=== PATIENT | male | born 1940 | race Caucasian/White ===

== ENCOUNTER 2017-05-02 08:12 | Inpatient (IN) | payer OTHER ==
[~2017-05-02] VITALS: Ht 182.9 cm; Wt 91.0 kg
[2017-05-02 11:05] VITALS: BP 138/76
--- NOTE | 2017-05-02 11:09 | History & Physical ---
SAMANTHABOB 05/02/17 1108: General Information and HPI Statement: I have seen and personally examined CAROLYN WRIGHT and documented this H&P. The patient is a 76 year old M who presented with a patient stated chief complaint of [CARDIAC ARREST]. Source of Information: patient, family Exam Limitations: clinical condition History of Present Illness: 76 year old gentleman with pmh of HTN, afib on Xarelto about 1month ago, HLP who was in outpatient suit for elective cardioversion developed cardiac arrest. Into the patient has history of recently found atrial fibrillation, hypertension, hyperlipidemia, remote history of nasal surgery for septal deviation. During the interview patient was drowsy, unable to completely answer to the questions. According to Klaus Miranda MD patient had hx of afib. Is put on Xarelto for at least 4 weeks and came to [facility] for outpatient cardioversion. 200J sync was given to reverse the atrial fibrillation which was not successful after the second 200 J sync, patient went into V. tach and subsequent V. fib. CPR was is instantly started,and patient was intubated, ROSC was obtained patient was put on levophed and patient was extubated after 30 mins and transferred to ICU. In the ICU patient blood pressure dropped to 40/ doppler and he became mildly drowsy and has mild cyanosis of the extremities. She was put on Levophed, dopamine, dubutamine. bed side heart ultrasound showed EF of around 30%. central line on the left IJ was placed and patient and dubutamine and Levophed were continued, and was stopped. Patient blood pressure and mental status improved drastically. Initial EKG did not show any acute ST-T changes, NSR Chest x-ray or after the procedure did not show any pneumothorax or pleural effusion. Past History Travel History Traveled to [place] past 21 day No Medical History Cardiovascular: AFIB, chronic venous insuff, hypertension, hyperlipidemia Review of Systems Review of Systems Constitutional: Reports: see HPI. Exam & Diagnostic Data Last 24 Hrs of Vital Signs/I&O Vital Signs Date Time Temp Pulse Resp B/P B/P Pulse O2 O2 Flow FiO2 Mean Ox Delivery Rate 05/02 1220 68/0 05/02 1105 97.0 112 18 138/76 98 Ventilator 100% 05/02 1105 98 Ventilator 100% Intake & Output 05/02 1600 05/02 0800 05/02 0000 Intake Total Output Total Balance Patient 200 lb Weight Weight Bed scale Measurement Method Physical Exam General Appearance Oriented X3, Cooperative, No Acute Distress, DROWSY Skin Temp/Moisture Exam: Cool/Dry Sepsis Skin Exam (color): Cyanotic Neck jvd +1 Cardiovascular Regular Rate, Normal S1, Normal S2 Lungs Clear to Auscultation Abdomen Normal Bowel Sounds, Soft, No Tenderness Neurological Normal Speech Extremities COLD AND MILDLY CYANOTIC, SLOW CAP REFILL, NO PERIPHERAL PULSES Assessment/Plan Assessment: 76 year old gentleman with pmh of HTN, afib on Xarelto about 1month ago, HLP who was in outpatient suit for elective cardioversion developed cardiac arrest, status post CPR and possible cardiogenic shock on 2 pressors. Assessment and plan #cardiac arrest due to arrhythmia status post CPR possible cardiogenic shock -NPO for now -conitune dobutamine, try to wean off levophed -will consider mild hydarion -check stat icu bundle,lactic acid, coag,troponin -Troponin and EKG every 4-6 hours and Trend it -Dr Hayward already following the patient -discontinue Xarelto and put the patient on IV heparin around 5 PM -check fingersticks -I and Os -IV PPI # HLP -Continue statin hx of afib an HTN -no beta maxwell for now Full code, DVT prophylaxis IV heparin and ALPS, acetaminophen for pain,NPO As Ranked By This Provider Problem List: 1. Ventricular fibrillation Core Measures/Miscellaneous Acute Coronary Syndrome ACS Diagnosis: No Cerebrovascular Accident CVA/TIA Diagnosis: No Congestive Heart Failure CHF Diagnosis: No VTE (View Protocol) VTE Risk Factors: Age > 40 No [facility] VTE prophylaxis d/t: No contraindications No VTE Pharm Prophylaxis d/t: No contraindications VTE Diagnosis: No VTE Type: NONE VTE Confirmed by (Test): NONE Sepsis (View Protocol) Severe Sepsis Present: No Septic Shock Septic Shock Present: No Miscellaneous Documentation Attending Case Discussed With: Patient sees these Specialists dr HAYWARD Level of Patient Care: Critical Care (CRI) DANE SOLIS MD 05/02/17 1315: General Information and HPI Allergies/Medications Allergies: Coded Allergies: No Known Allergies (05/02/17) Home Med list Metoprolol Tartrate 25 MG TABLET 1 TAB PO BID HEART (Reported) Past History Surgical History Surgical History: unobtainable Core Measures/Miscellaneous Miscellaneous Documentation Primary Care Physician: TONYA SALDAÑA,ASHLIE Attending MD Review Statement Attending Statement Attending MD Statement: examined this patient, discuss w/resident/PA/SEO CONSULTANT, agreed w/resident/PA/SEO CONSULTANT, discussed with family, reviewed EMR data (avail), discussed with nursing, discussed with case mgmt, reviewed images, amended to note Attending Assessment/Plan: Dane Kulkarni M.D. have examined this patient, reviewed available EMR data, personally reviewed images, discussed with resident/PA/SEO CONSULTANT, discussed management plan with housestaff and nursing staff, discussed managment plan all of healthcare providers, discussed management plan with patient and/or family, agreed with resident/PA/SEO CONSULTANT. The past history and parts of the chart have been autopopulated. Impression 76 year old man. s/p cardiac arrest myocardial stunning post CPR, EF 20% estimated cardiogenic shock a.fib Plan Respiratory -extubated -monitor cxr ID -monitor wbc CVS -monitor hemodynamics -titrate levophed -titrate dobutamine Heme -monitor cbc, coags -xarelto held for now Metabolic -monitor ins/outs -creatinine Alimentary -NPO for now Neuro -stable -pain control DVT prophylaxis at all times Monitor all labs and electrolytes TTS 90 min D/w family and attendings
--- NOTE | 2017-05-02 11:15 | NUR ---
76 YEAR OLD MALE PRESENTS DIRECT ADMIT TO ICU FROM AMBULATORY SURGICAL SUITE S/P CODE 3 AFTER ELECTIVE CARDIOVERSION TREATMENT FOR AFIB. PT CODED 2 TIMES AND RETURN ROSC THEN TRANSPORTED WITH WHOLE TEAM TO ICU. PT IS STABLE AND RESPONDING APPORPRIATELY AT THIS TIME SO DECIDED BY TEAM TO BE EXTUBATED TO 9L NC OXIDIZER O2, WITH SATS STABLE AT 94%. bp NOTED STABLE AT THIS TIME AND LEVOPHED IS BEING HELD FOR 138/73 PRESSURE. IVF NS WIDE OPEN FOR 1 MORE LITER AND HEART RATE NOTED 112 SINUS TACHYCARDIA AT THIS TIME. PT SETTLED INTO ROOM 111 AND FAMILY DISCUSSION DONE WITH DR SOLIS AND DR RAMIREZ.
[2017-05-02] MEDS ORDERED: METOPROLOL TART25 M1 PO (11:32)
--- NOTE | 2017-05-02 11:45 | NUR ---
PTS BP NOTED DECREASED AT 42/DOPPLER AND LEVOPHED QUICKLY TITRATED TO 20MCG/MIN. DR LUCAS AT BEDSIDE WITH BP STILL LOW AFTER 20 MINUTES OF LEVOPHED AND NS RUNNING. 1210 DOPAMINE DRIP PLACED 1215 DOBUTAMINE DRIP PLACED PER DR LUCAS AT 15MCG/KG/MIN WITH WEIGHT NOTED 90 KG. 1225 BP IMPROVED AND DOPAMINE TO BE TITRATED TO OFF. 1230 PT MUCH MORE ALERT AND RESPONDING WELL TO ICU STAFF.
[2017-05-02 11:51] LABS: ABSOLUTE BASOPHIL COUNT 0 /CUMM (0.0-0.2); ABSOLUTE EOSINOPHIL COUNT 0 /CUMM (0.0-0.7); ABSOLUTE GRANULOCYTE CT 7.4 /CUMM (1.4-6.5); ABSOLUTE LYMPH COUNT 4.2 /CUMM (1.2-3.4); ABSOLUTE MONOCYTE COUNT 0.4 /CUMM (0.10-0.60); BASOPHIL % 0.3 % (0.0-2.0); EOSINOPHIL % 0.3 % (0-5); GRANULOCYTE % 61.2 % (42.2-75.2); HEMATOCRIT 42.2 % (42-52); MEAN CORPUSCULAR HGB 31.1 PG (27.0-31.0); MEAN CORPUSCULAR HGB CONC 33.3 G/DL (33.0-37.0); MEAN CORPUSCULAR VOLUME 93.5 FL (80.0-94.0); MEAN PLATELET VOLUME 10.1 FL (7.4-10.4); PLATELET COUNT 196 /CUMM (130-400); RBC DISTRIBUTION WIDTH 13.7 % (11.5-14.5); RED BLOOD CELL CT 4.51 /CUMM (4.70-6.10); WHITE BLOOD CELL COUNT 12.1 /CUMM (4.8-10.8)
[2017-05-02 11:52] LABS: PT 16.2 SEC (9.4-12.5)
--- NOTE | 2017-05-02 11:53 | RADIOLOGY REPORT ---
EXAMINATION: XR PORTABLE CHEST CLINICAL INFORMATION: Status post cardiac arrest and CPR COMPARISON: None TECHNIQUE: Portable AP upright view of the chest was obtained. FINDINGS: The left lateral hemithorax and costophrenic sulcus is not included on the film. Heart size is upper limits of normal. Pulmonary vascularity is normal. There is slight elevation of the right diaphragm with some crowding of the markings in the right midlung zone. There is no pulmonary edema. There is no focal consolidation or atelectasis appreciated. There is no pneumothorax or significant pleural effusion. No acute bony abnormality is seen. IMPRESSION: Chest x-ray is limited. Lateral lower hemithorax is not included on the film. The lungs are grossly clear. There is no pulmonary edema, pneumothorax or significant pleural effusion
--- NOTE | 2017-05-02 12:25 | Cons- Cardiology ---
General Information and HPI Consulting Request Date of Consult: 05/02/17 Requested By: Dr. Mcgarry Reason for Consult: cardiac arrest Source of Information: patient, family, old records History of Present Illness: This is a very pleasant 76-year-old male with a recently diagnosed atrial fibrillation and also found to have a mild left ventricular dysfunction on outpatient echocardiogram which was presumed due to the atrial fibrillation. He was scheduled for elective RUSS cardioversion today to resume sinus rhythm and has been taking Xarelto for anticoagulation. The transesophageal echocardiogram revealed no left ventricular thrombus and cardioversion was attempted. The 1st cardioversion attempt was unsuccessful at restoring sinus rhythm and following the 2nd attempt of cardioversion and the patient developed polymorphic VT with subsequent ventricular fibrillation. ACLS protocol was immediately initiated and the patient failed to convert back to a stable rhythm with an immediate defibrillation attempt. I personally ran the ACLS code (see signed code sheet) and after rounds of cardiopulmonary resuscitation the patient remained in unstable ventricular arrhythmia; he did receive intravenous amiodarone and I subsequently used to a simultaneous defibrillators to convert the patient back into atrial fibrillation with the return of a pulse. He did require intravenous pressors and did have a transient episode of sinus bradycardia after that for which I did temporarily transcutaneous pacing. We were able to stabilize the patient and immediately transferred him to the ICU for admission. Bedside echocardiogram did show decreased ejection fraction and due to low blood pressure we initiated him on dobutamine and Levophed with good blood pressure response. Allergies/Medications Home Med List: Metoprolol Tartrate 25 MG TABLET 1 TAB PO BID HEART (Reported) Current Medications: Current Medications Sig/Alysia Start time Last Medication Dose Route Stop Time Status Admin Acetaminophen 650 MG Q6P PRN 05/02 1315 AC PO Amiodarone HCl/ 360 MG Q12H 05/02 1115 AC Dextrose IV N/A 1 UNIT Dobutamine HCl 250 MG .STK-MED ONE 05/02 1235 DC IV 05/02 1236 Dobutamine HCl 250 MG Q24H 05/02 1215 AC 05/02 Dextrose/Water 250 ML IV 1220 Dopamine HCl 400 MG Q24H 05/02 1245 AC Dextrose/Water 500 ML IV Heparin Sodium 25,000 UNIT Q24H 05/02 1130 AC (Porcine) IV Sodium Chloride 500 ML Ketorolac 15 MG ONCE ONE 05/02 1330 DC Tromethamine IV 05/02 1331 Lidocaine 0 .STK-MED ONE 05/02 0823 DC TOP Midazolam HCl 0 .STK-MED ONE 05/02 1106 DC .ROUTE Morphine Sulfate 2 MG ONCE ONE 05/02 1115 DC 05/02 IV 05/02 1116 1115 Norepinephrine 4 MG Q4H 05/02 1245 AC Dextrose/Water 250 ML IV Pantoprazole Sodium 40 MG DAILY 05/02 1320 AC IV Sodium Chloride 1,000 ML ONCE ONE 05/02 1215 AC 05/02 IV 05/02 1714 1230 Sodium Chloride 1,000 ML BOLUS ONE 05/02 1200 DC 05/02 IV 05/02 1259 1200 Review of Systems Review of Systems: As per above HPI. The remainder of a 10 point review of systems was reviewed and was otherwise negative. Past History Travel History Traveled to [place] past 21 day No Medical History Cardiovascular: AFIB Surgical History Surgical History: non-contributory Exam & Diagnostic Data Vital Signs and I&O Vital Signs Date Time Temp Pulse Resp B/P B/P Pulse O2 O2 Flow FiO2 Mean Ox Delivery Rate 05/02 1220 68/0 05/02 1105 97.0 112 18 138/76 98 Ventilator 100% 05/02 1105 98 Ventilator 100% Intake & Output 05/02 1600 05/02 0800 05/02 0000 05/01 1600 05/01 0800 05/01 0000 Intake Total Output Total Balance Patient 200 lb Weight Weight Bed scale Measurement Method Physical Exam: General: no apparent distress. Alert. Eyes: No obvious scleral icterus. HEENT: No jugular venous distention or abnormal jugular venous pulsations. Cardiovascular: Normal intensity S1/S2. Regular. Respiratory: No rales or rhonchi Abdomen: no guarding Musculoskeletal: No clubbing or cyanosis noted, no edema Skin: Warm Neurologic: No gross focal deficits noted. Labs/Eran Results: Laboratory Tests 05/02 05/02 1320 1120 Blood Gas pH (7.35 - 7.45 PH) 7.41 pCO2 (35 - 45 TORR) 28 L pO2 (80 - 100 TORR) 68 L HCO3 (21 - 28 MEQ/L) 17 L ABG O2 Sat (Measured) (>96.0 %) 93.0 L P-50 (Temp Corrected) Y Carboxyhemoglobin (1.5 - 5.0 %) 0.5 L O2 Concentration % 8L Temperature (97.0 - 100.0 FARH) 97.0 O2 Delivery Method N/C PENDANT Chemistry Sodium (137 - 145 mmol/L) 137 Potassium (3.5 - 5.1 mmol/L) 3.7 Chloride (98 - 107 mmol/L) 105 Carbon Dioxide (22 - 30 mmol/L) 21 L Anion Gap (5 - 16) 12 BUN (9 - 20 mg/dL) 15 Creatinine (0.7 - 1.2 mg/dL) 1.1 Estimated GFR (>60 ml/min) > 60 Glucose (65 - 99 mg/dL) 255 H Lactic Acid (0.7 - 2.1 mmol/L) 5.4 H Calcium (8.4 - 10.2 mg/dL) 9.0 Phosphorus (2.5 - 4.5 mg/dL) 4.0 Magnesium (1.6 - 2.3 mg/dL) 3.3 H Total Bilirubin (0.2 - 1.3 mg/dL) 1.3 AST (17 - 59 U/L) 102 H ALT (21 - 72 U/L) 116 H Creatine Kinase (55 - 170 U/L) 107 Troponin I (<0.11 ng/ml) 0.02 Albumin (3.5 - 5.0 g/dL) 3.6 Coagulation PT (9.4 - 12.5 SEC) 16.2 H INR (0.90 - 1.17) 1.55 H Hematology CBC w Diff MAN DIFF ORDERED WBC (4.8 - 10.8 /CUMM) 12.1 H RBC (4.70 - 6.10 /CUMM) 4.51 L Hgb (14.0 - 18.0 G/DL) 14.0 Hct (42 - 52 %) 42.2 MCV (80.0 - 94.0 FL) 93.5 MCH (27.0 - 31.0 PG) 31.1 H RDW (11.5 - 14.5 %) 13.7 Plt Count (130 - 400 /CUMM) 196 MPV (7.4 - 10.4 FL) 10.1 Gran % (42.2 - 75.2 %) 61.2 Lymphocytes % (20.5 - 51.1 %) 34.5 Monocytes % (1.7 - 9.3 %) 3.7 Eosinophils % (0 - 5 %) 0.3 Basophils % (0.0 - 2.0 %) 0.3 Absolute Granulocytes (1.4 - 6.5 /CUMM) 7.4 H Segmented Neutrophils (42.2 - 75.2 %) 53 Band Neutrophils (0.0 - 5.0 %) 3 Absolute Lymphocytes (1.2 - 3.4 /CUMM) 4.2 H Lymphocytes (20.5 - 51.1 %) 38 Monocytes (1.7 - 9.3 %) 4 Absolute Monocytes (0.10 - 0.60 /CUMM) 0.4 Absolute Eosinophils (0.0 - 0.7 /CUMM) 0 Absolute Basophils (0.0 - 0.2 /CUMM) 0 Myelocytes (0 - 0 %) 2 H Platelet Estimate (ADEQUATE) ADEQUATE Normocytic RBCs VERIFIED Normochromic RBCs VERIFIED PUBS MCHC (33.0 - 37.0 G/DL) 33.3 Miscellaneous Phlebotomy Draw Site RIGHT RADIAL 05/02 1040 Blood Gas pH (7.35 - 7.45 PH) 7.32 L pCO2 (35 - 45 TORR) 36 pO2 (80 - 100 TORR) 64 L HCO3 (21 - 28 MEQ/L) 18 L ABG O2 Sat (Measured) (>96.0 %) 89.0 L Carboxyhemoglobin (1.5 - 5.0 %) 1.0 L O2 Concentration % 100% O2 Delivery Method [id number] Miscellaneous Phlebotomy Draw Site LEFT RADIAL Diagnostic Data EKG Results tracing was personally reviewed now shows sinus rhythm without ST elevations. Pre cardioversion ECG confirmed atrial fibrillation. CXR Results IMPRESSION: Chest x-ray is limited. Lateral lower hemithorax is not included on the film. The lungs are grossly clear. There is no pulmonary edema, pneumothorax or significant pleural effusion Other Results Telemetry tracings were personally reviewed and currently shows sinus rhythm Transesophageal echocardiogram showed cardiomyopathy with no evidence of intracardiac thrombus, small left to right inter atrial shunt noted Assessment/Plan Assessment/Plan 1. Recent diagnosis of atrial fibrillation on Xarelto with outpatient EF of 40% 2. Attempted RUSS/CV complicated by pulseless ventricular arrhythmia; subsequently stabilized after ACLS protocol and defibrillation with no evidence of neurologic injury 3. Hypotension requiring pressors/ionotropes 4. History of hyperlipidemia See above HPI. The cardioversion was complicated by unstable ventricular arrhythmia; as the patient showed no evidence of CHF or acute ischemia I must consider the possibility of inadequate synchronization as a possible etiology. While the patient did appear to be well synchronized on the defibrillator it is possible we lost synchronization while we were clearing the patient immediately prior to delivering the 2nd shock. Fortunately we initiated immediate ACLS protocols and were able to stabilize the patient and he is now awake and alert with no evidence of neurologic complication. As he is now in sinus rhythm I do not think we need to put him on an amiodarone drip as he did receive IV boluses of amiodarone during ACLS protocol. We will titrate down Levophed and dobutamine as blood pressure allows. The patient was transiently intubated during ACLS but was subsequently extubated with no respiratory distress. He will require continued anticoagulation; he did take his Xarelto this morning and we should plan on initiating a heparin drip this afternoon with the eventual plan to transition back to the Xarelto. Monitor fluid status closely given his depressed ejection fraction. Will plan for outpatient ischemic workup in the future. We are hoping to see overall improvement in his ejection fraction with maintaining sinus rhythm going forward. Once blood pressures completely stabilized his beta- maxwell will be resumed. Time spent in critical care was greater than 120 minutes. Leonardo Miranda MD [facility] Consult Acknowledgment - Thank you for your consult request.
--- NOTE | 2017-05-02 13:22 | Proc Note Internal Medicine ---
See Addendum Medicine Procedure Procedure Date: 05/02/17 Medical Procedure(s): central venous cath place Estimated Blood Loss: 50ml to 100ml Procedure Findings: Indication: Requesting Physician: Dr. Mcgarry Type of Procedure: Central Venous Catheter Placement Attending Physician: Dane Mcgarry Assisting Physician: Dane Mcgarry MD Indication: This is a _76__ year-old __man_ with _post cardiac arrest__ . Consent: Detailed explanation of the procedure, treatment options, risks including but not limited to infection and bleeding, and benefits were explained to the patient . A written informed consent was obtained. Technique: A time out was preformed identifying the correct procedure, the correct location with the nursing staff. The right neck was prepped with 2% chlorhexidine and draped with a full length sterile sheet in the usual fashion. 1% lidocaine was administered subcutaneously for local anesthesia. The right internal jugular vein was accessed under ultrasound guidance with an 18 gauge thin wall needle. A triple lumen lumen was inserted via the seldinger technique. Blood was withdrawn from all lumens and flushed with normal saline. The catheter was sutured in place and a sterile dressing was applied over the site prior to removal of drapes. The patient tolerated the procedure well and there were no complications. Chest x ray is pending at this time. EBL: Complication: None
--- NOTE | 2017-05-02 13:51 | RADIOLOGY REPORT ---
EXAMINATION: XR PORTABLE CHEST CLINICAL INFORMATION: Internal jugular placement. COMPARISON: 05/02/2017 TECHNIQUE: Portable frontal view of the chest was obtained. FINDINGS: There is a new right internal jugular central venous catheter which terminates over the superior SVC. Cardiac leads overlie the chest. There is elevation of the right hemidiaphragm. No consolidation, edema, or effusion. No pneumothorax. The cardiomediastinal silhouette is unchanged. IMPRESSION: Right internal jugular central venous catheter terminating over the superior SVC. No pneumothorax.
--- NOTE | 2017-05-02 14:18 | NUR ---
PHLEBOTOMIST ASSOCIATE JOSELITO AND BETY KAUR ARRIVED TO CARDIAC ARREST, PT INTUBATED BY ANESTHESIA WITH 7.5 ETT 22 AT THE LIP. ETT PLACEMENT VERIFIED BY B/L BREATH SOUNDS, + COLOR CHANGE ON CO2 DETECTOR AND ANESTHESIA GLIDESCOPE. PT BAGGED WITH 15L O2 WHILE COMPRESSIONS IN PROGRESS. PULSES RETURNED. ABG WAS OBTAINED BY BETY KAUR V/O PER DR. BRADFORD. PT TRANSFERED TO ICU ROOM 111 BAGGED BY BETY YEE WITH 15L O2. UPON ARRIVAL PT WAS EXTUBATED BY BETY KAUR TO 2L N/C, V/O PER DR. SOLIS. SEE CODE SHEET.
--- NOTE | 2017-05-02 14:53 | Proc Note Cardiology ---
Cardiology Procedure Procedure Date: 05/02/17 Cardiology Procedure(s): electrical cardioversion, RUSS Pre-Operative Diagnosis: Atrial fibrillation Post-Operative Diagnosis: VT/VF, subsequent sinus rhythm Estimated Blood Loss: none Anesthesia: see anesthesia record and ACLS code sheet Procedure Findings: See transesophageal echocardiogram report for details. No evidence of intracardiac thrombus, small [id number] interatrial shunt noted. Following the RUSS, cardioversion using 200 joules of synchronized energy was attempted x2; following the 2nd attempt ventricular tachycardia/ ventricular fibrillation was noted and ACLS protocol was immediately initiated. See my consultation note for full details. After ACLS/CPR with IV amiodarone bolus and multiple defibrillation attempts I was eventually able to restore a pulsed rhythm using defibrillation with 2 defibrillators simultaneously. The patient was subsequently transferred to the ICU. He was transiently intubated during ACLS but subsequently extubated with no respiratory distress or evidence of neurologic complication. Leonardo Miranda MD [facility]
--- NOTE | 2017-05-02 15:04 | ECHOCARDIOGRAM REPORT ---
CAROLYN WRIGHT Age: 76 : Gender: M Exam Date: 05/02/2017 10:01 Exam Location: Outpatient Ht (in): 72 Wt (lb): 200 BSA: 2.16 BP: 116 / 80 Ordering Physician: LAURA QUIROZ MD Referring Physician: LAURA QUIROZ MD Technologist: Jaycob Dinero ANITA Room Number: Indications: AFIB/FLUTTER Rhythm: Atrial fibrillation Technical Quality: Good Medications Propofol administered by Anesthesiology. Ease of Transducer Insertion No Difficulty Complications VT/VF after cardioversion attempt Technical Difficulty None. FINDINGS Left Ventricle Left ventricular cavity size at the upper limits of normal. Normal left ventricular wall thickness. Moderately reduced global left ventricular systolic function. Left ventricular ejection fraction is estimated at 35 %. Right Ventricle Normal right ventricular size and function. Right Atrium Mild right atrial dilatation. Left Atrium Moderate left atrial dilatation. LA Appendage No thrombus detected in the left atrial appendage. IA Septum Patent foramen ovale. Mitral Valve Structurally normal mitral valve. [id number] mitral regurgitation. Aortic Valve No aortic stenosis. Trileaflet aortic valve. Tricuspid Valve Structurally normal tricuspid valve. Mild tricuspid regurgitation. Unable to estimate the right ventricular systolic pressure. Pulmonic Valve Pulmonic valve not well visualized, grossly normal. Trace pulmonic regurgitation. Pericardium No pericardial effusion. Great Vessels Mildly dilated proximal ascending aorta (4.2 cm). CONCLUSIONS Left ventricular cavity size at the upper limits of normal. Normal left ventricular wall thickness. Moderately reduced global left ventricular systolic function. Left ventricular ejection fraction is estimated at 35 %. Normal right ventricular size and function. Mild right atrial dilatation. Moderate left atrial dilatation. No thrombus detected in the left atrial appendage. Patent foramen ovale. [id number] mitral regurgitation. Mildly dilated proximal ascending aorta (4.2 cm). Following the RUSS, cardioversion was attempted using 200 joules of synchronized energy x2. Following the 2nd delivery the patient developed VT/VF and ACLS protocol was immediately initiated with eventual return of spontaneous circulation. The patient was transferred to the ICU for additional treatment/monitoring. Klaus Miranda M.D. (Electronically Signed) Final Date: 02 May 2017 15:03 MEASUREMENTS (Male / Female) Normal Values 2D ECHO Ascending Aorta Diameter 4.2 cm
[2017-05-02 18:49] VITALS: BP 98/61
--- NOTE | 2017-05-02 19:55 | NUR ---
1530; PT SUPINE HOB UP 40DEGREES,C/O PAIN S/P COMPRESSIONS AND SHOCKS ICE PACKS TO CHEST WALL. PT MEDICATED WITH MORPH PREVIOUSLY, 5L NC SAT 95, TLC TO RT IJ,3 IV SITES RT ARM,, CARDIAC PADS ON PT. PREVENTATIVE, HNV, SINCE EVENT,. WEANED OFF LEVOPHED NOW WEANING OFF DOBUTAMINE GTT, IVF NS 100MLS/HR, 1730 STARTED HEPARING GTT AFTER EKG AND BLD DRAWNS.CL STARTED PT VERO WELL ACCU CHECK PRIOR TO CL 86 AND REPORTED, FAMILY AT BEDSIDE. RESTING COMFORTABLY.
[2017-05-03] VITALS: BP 116/67
[2017-05-03 00:19] LABS: PTT 70 SEC (25-37)
[2017-05-03 05:26] LABS: ABSOLUTE BASOPHIL COUNT 0 /CUMM (0.0-0.2); ABSOLUTE EOSINOPHIL COUNT 0 /CUMM (0.0-0.7); ABSOLUTE GRANULOCYTE CT 6.9 /CUMM (1.4-6.5); ABSOLUTE LYMPH COUNT 0.7 /CUMM (1.2-3.4); ABSOLUTE MONOCYTE COUNT 0.5 /CUMM (0.10-0.60); BASOPHIL % 0.2 % (0.0-2.0); EOSINOPHIL % 0 % (0-5); GRANULOCYTE % 84.9 % (42.2-75.2); MEAN CORPUSCULAR HGB 31.3 PG (27.0-31.0); MEAN CORPUSCULAR HGB CONC 33.4 G/DL (33.0-37.0); MEAN CORPUSCULAR VOLUME 93.5 FL (80.0-94.0); MEAN PLATELET VOLUME 9.5 FL (7.4-10.4); PLATELET COUNT 119 /CUMM (130-400); RBC DISTRIBUTION WIDTH 13.4 % (11.5-14.5); RED BLOOD CELL CT 3.74 /CUMM (4.70-6.10)
[2017-05-03 05:51] LABS: WHITE BLOOD CELL COUNT 8.1 /CUMM (4.8-10.8)
[2017-05-03 08:00] VITALS: BP 122/74
--- NOTE | 2017-05-03 08:13 | NUR ---
1930 REC'D PT IN BED A/O X3. S/P CODE 3, DEFIB PADS AT BEDSIDE ON BUT NOT ON PACED MODE. SR ON THE MONITOR HR 80-90'S, SBP 90-120'S CORRELATING TO BOTH CUFFS. ON THE DOBUTAMINE GTT TITRATE DOWN TO 5MCG/KG/MIN, HEP GTT FOR AFIB/DVT PROTOCOL & IVF NS @100ML/HR. IVF REORDERED. SL CLAIRE CHEST AREA D/T CPR, ICE PACK APPLIED & STATED IT HELPED. DID NOT WANT ANY PAIN MEDS AT THIS TIME. ON 5LNC POX >94-98%, LS DIMINISHED BUT HAD SOME FRICTION RUB TO AT THE BASES S/P CODE 3. PT HAD NOT VOIDED SINCE 11AM. BLADDER SCAN >307ML. OFFERED THE URINAL & FINALLY VOIDED 100ML OF SL DK URINE. REFUSED TO BE ST CATH/PLACE A FC, PT STATED WILL WAIT & SEE. 2300 PLACED A CVP ZEROED/ READING 12, INFORMED DR. MCCLAIN. NO INTERVENTION ORDERED. EKG/LAB DRAWN FOR TROP/PTT. [id number] AFIA DEL VALLE AWARE & ORDERED ANOTHER TROP/EKG FOR 5AM. PT FINALLY ASKED FOR PAIN MED BUT ALSO C/O NAUSEA. MEDICATED W/MORPHINE & ZOFRAN SEE EMAR FOR TIMES. TITRATED FIO2 TO 4LNC. POX >94-95% 0200 COMPLETE BED BATH GIVEN. HAD DIFFICULTY W/ANY T&P & PLACING HOB DOWN. MANAGED FAIRLY WELL. PT STATED THOUGH HAD GOOD RELIEF W/THE PAIN MED. SETTLED TO SLEEP FOR AT LEAST 2HRS. [id number] COUGH UP SM AMT OF OLD BLOOD TK FROM THE INTUBATION/EXTUBATION VOIDED TWICE OF 200ML SEE I/O SHEET. [id number] D/C DOBUTAMINE GTT PER DR. DEL VALLE. AND MEDICATED AGAIN W/MORPHINE AGAIN WITH MORPHINE & ZOFRAN IV SEE EMAR. VS WNL. 4TH TROP 0.86. EKG DONE. CONT TO MONITOR. 07 [facility].
--- NOTE | 2017-05-03 09:52 | PN- CRCU ---
Subjective HPI/Critical Care Issues: pt seen and examined off vasopressors (levophed and dobutamine) right sided IJ triple lumen, dressing changed last night mentating well CVP 11 afebrile 93% on 4LNC 4.5L positive over 24 hours pending cxr this am Objective Current Medications: Current Medications Sig/Alysia Start time Last Medication Dose Route Stop Time Status Admin Acetaminophen 650 MG Q6P PRN 05/02 1315 AC PO Amiodarone HCl/ 360 MG Q12H 05/02 1115 DC Dextrose IV N/A 1 UNIT Dobutamine HCl 250 MG Q8H 05/02 2200 DC 05/02 Dextrose/Water 250 ML IV 2159 Dobutamine HCl 250 MG Q4H 05/02 1600 DC 05/02 Dextrose/Water 250 ML IV 1600 Dobutamine HCl 250 MG .STK-MED ONE 05/02 1235 DC IV 05/02 1236 Dobutamine HCl 250 MG Q24H 05/02 1215 DC 05/02 Dextrose/Water 250 ML IV 1220 Dopamine HCl 400 MG Q24H 05/02 1245 DC 05/02 Dextrose/Water 500 ML IV 1517 Heparin Sodium 25,000 UNIT Q24H 05/02 1130 AC 05/02 (Porcine) IV 1726 Sodium Chloride 500 ML Ketorolac 15 MG ONCE ONE 05/02 1330 DC 05/02 Tromethamine IV 05/02 1331 1330 Midazolam HCl 0 .STK-MED ONE 05/02 1106 DC .ROUTE Morphine Sulfate 2 MG ONCE ONE 05/02 1530 DC 05/02 IV 05/02 1531 1539 Morphine Sulfate 2 MG Q4P PRN 05/02 1530 05/03 IV 0610 Morphine Sulfate 2 MG ONCE ONE 05/02 1115 DC 05/02 IV 05/02 1116 1115 Norepinephrine 4 MG Q4H 05/02 1245 DC 05/02 Dextrose/Water 250 ML IV 1245 Norepinephrine 4 MG .STK-MED ONE 05/02 1226 DC IV 05/02 1227 Ondansetron HCl 4 MG Q4-6 PRN PRN 05/02 1545 05/03 IV 0611 Pantoprazole Sodium 40 MG DAILY 05/02 1320 AC 05/02 IV 1320 Phosphate 250 MG PC AND AT BEDTIME 05/03 1300 UNVr PO Phosphate 250 MG PC AND AT BEDTIME 05/02 2100 DC 05/02 PO 05/03 0901 2200 Potassium Chloride 40 MEQ ONCE ONE 05/03 0700 DC PO 05/03 0701 Potassium Chloride 20 MEQ ONCE ONE 05/03 0630 DC 05/03 IV 05/03 0631 0638 Potassium Chloride 20 MEQ ONCE ONE 05/02 1530 DC 05/02 IV 05/02 1531 1532 Sodium Chloride 1,000 ML Q10H 05/03 0230 AC 05/03 IV 0200 Sodium Chloride 1,000 ML ONCE ONE 05/02 1215 DC 05/02 IV 05/02 1714 1230 Sodium Chloride 1,000 ML BOLUS ONE 05/02 1200 DC 05/02 IV 05/02 1259 1200 Vital Signs & I&O Last 24 Hrs of Vitals and I&O: Vital Signs Date Time Temp Pulse Resp B/P B/P Pulse O2 O2 Flow FiO2 Mean Ox Delivery Rate 05/03 0600 77 101/57 05/03 0400 93 Nasal 4.0L Cannula 05/03 0000 99.1 96 13 116/67 94 Nasal 4.0L Cannula 05/03 0000 94 Nasal 4.0L Cannula 05/02 2159 97 104/65 05/02 2045 98 107/64 05/02 2000 98 Nasal 5.0L Cannula 05/02 1849 99.7 104 12 98/61 95 Nasal 5.0L Cannula 05/02 1645 102 104/63 05/02 1600 102 104/63 05/02 1600 95 Nasal 5.0L Cannula 05/02 1517 68 72/48 05/02 1220 68/0 05/02 1105 97.0 112 18 138/76 98 Ventilator 100% 05/02 1105 98 Ventilator 100% Intake & Output 05/03 1600 05/03 0800 05/03 0000 Intake Total 1428 1533 Output Total 400 100 Balance 1028 1433 Intake, IV 1188 933 Intake, Oral 240 600 Number 0 0 Bowel Movements Output, Urine 400 100 Exam Other Physical Findings: gen awake and alert heent ncat cvs s1, s2 lungs diminished at bases abd soft bs+ ext without edema tenderness midchest Results Last 24 Hrs of Lab Results: Laboratory Tests 05/03/17 0500: Troponin I Cancelled 05/03/17 0455: Anion Gap 7, Estimated GFR > 60, Glucose 86, Calcium 8.0 L, Phosphorus 3.1, Magnesium 2.3, Total Bilirubin 1.2, AST 81 H, ALT 93 H, Troponin I 0.86 *H, Albumin 2.9 L, CBC w Diff NO MAN DIFF REQ, RBC 3.74 L, MCV 93.5, MCH 31.3 H, RDW 13.4, MPV 9.5, Gran % 84.9 H, Lymphocytes % 8.6 L, Monocytes % 6.3, Eosinophils % 0, Basophils % 0.2, Absolute Granulocytes 6.9 H, Absolute Lymphocytes 0.7 L, Absolute Monocytes 0.5, Absolute Eosinophils 0, Absolute Basophils 0, PUBS MCHC 33.4 05/02/17 2220: Troponin I 1.79 *H, APTT 70 H 05/02/17 1700: Anion Gap 8, Estimated GFR 59 L, Glucose 84, Lactic Acid 1.1, Calcium 8.3 L, Phosphorus 1.6 L, Magnesium 2.4 H, Total Bilirubin 1.3, AST 97 H, ALT 112 H, Troponin I 2.20 *H, Albumin 3.1 L 05/02/17 1320: pH 7.41, pCO2 28 L, pO2 68 L, HCO3 17 L, ABG O2 Sat (Measured) 93.0 L, P-50 (Temp Corrected) Y, Carboxyhemoglobin 0.5 L, O2 Concentration % 8L, Temperature 97.0, O2 Delivery Method N/C PENDANT, Phlebotomy Draw Site RIGHT RADIAL 05/02/17 1120: Anion Gap 12, Estimated GFR > 60, Glucose 255 H, Lactic Acid 5.4 H, Calcium 9.0, Phosphorus 4.0, Magnesium 3.3 H, Total Bilirubin 1.3, AST 102 H, ALT 116 H, Creatine Kinase 107, Troponin I 0.02, Albumin 3.6, PT 16.2 H, INR 1.55 H, CBC w Diff MAN DIFF ORDERED, RBC 4.51 L, MCV 93.5, MCH 31.1 H, RDW 13.7, MPV 10.1, Gran % 61.2, Lymphocytes % 34.5, Monocytes % 3.7, Eosinophils % 0.3, Basophils % 0.3, Absolute Granulocytes 7.4 H, Segmented Neutrophils 53, Band Neutrophils 3, Absolute Lymphocytes 4.2 H, Lymphocytes 38, Monocytes 4, Absolute Monocytes 0.4, Absolute Eosinophils 0, Absolute Basophils 0, Myelocytes 2 H, Platelet Estimate ADEQUATE, Normocytic RBCs VERIFIED, Normochromic RBCs VERIFIED, PUBS MCHC 33.3 05/02/17 1040: pH 7.32 L, pCO2 36, pO2 64 L, HCO3 18 L, ABG O2 Sat (Measured) 89.0 L, Carboxyhemoglobin 1.0 L, O2 Concentration % 100%, O2 Delivery Method AMBU-BAG, Phlebotomy Draw Site LEFT RADIAL Impression/Plan Impression/Plan Impression/Plan: Impression 76 year old man * s/p cardiac arrest, ventricular arrhythmia after cardioversion electively for a.fib * chest contusion with possible fractures of ribs/costochondritic pain * cardiogenic shock resolved - cardiomyopathy, likely underlying from cpr Plan Respiratory -remains extubated -repeat cxr this morning -chest contustion, possible fractures -aggressive pain control -incentive spirometry q1 hour ID -no acute issues CVS -f/u cardiology recommendations -on heparin drip, previously on xarelto -per cardiology limited echo repeat early next week Heme -heparin drip monitoring Metabolic -replete electrolytes to goal -kphos Alimentary -cardiac diet, with a bedside swallow Neuro -pain control DVT prophylaxis at all times TTS 40 min
--- NOTE | 2017-05-03 11:06 | RADIOLOGY REPORT ---
EXAMINATION: XR PORTABLE CHEST CLINICAL INFORMATION: Status post cardiac arrest. CPR. COMPARISON: [facility] of 05/02/17. TECHNIQUE: Portable frontal view of the chest was obtained. FINDINGS: The tip of the right IJ CVL reaches the level of the mid SVC. The lungs and pleural spaces are clear. No pneumothorax is demonstrated. Enlargement the cardiac silhouette is unchanged. Assessment of bony structures is limited. No acute abnormality is seen. IMPRESSION: 1. Stable mildly enlarged cardiac silhouette. 2. Clear lungs and pleural spaces.
[2017-05-03 12:59] LABS: PTT 80 SEC (25-37)
--- NOTE | 2017-05-03 13:50 | NUR ---
Patient is alert and oriented x's 3, able to follow commands and answer questions appropriately. NSR w/ Pac's and PVC's, HR= 60-70's. Episodes of SVT vs Afib where heart rate increases to the 140's last only a couple seconds. Heparin gtt continues to infuse and is therapeutic with the enxt PTT due at 2330. CVP: 11-12- SBP: 120's- patient c/o chest pain s/p CPR and has been medicated with IV morphine and icepacks as needed. He is on 3L nc, lungs clear- O2 sats 96-98% Will occasionally drop his O2 saturations to 88% when sleeping. CXR completed this morning. He is voiding clear yellow urine in the urinal. Abdomen is soft and non tender with + bowel sounds. Diet has been advanced and he is tolerating po however has poor intake. Skin is intact- coccyx red and blanchable. RIJ TLC in place and site is WNL- NS infusing @ 50mls/hr. Patient states pain is tolerable at this time. Vitals are currently stable- Dobutamine has been d/c since 0600. Will continue to closely monitor patient.
--- NOTE | 2017-05-03 14:43 | PN- Resident CRCU ---
Subjective HPI/CRCU Issues: Status post cardiac arrest due to V. tach and V. fib 24 Hour Events: I have seen and examined the patient. Patient is better today. alert and oriented. Vital signs are stable. CVP is 12. Patient is positive 4 liters for Iv fluids. NO fevers Objective Vital Signs & I&O Last 8 Hrs of Vitals and I&O: Vital Signs Result Date Time Pulse Ox 95 05/03 1200 O2 Delivery Nasal Cannula 05/03 1200 O2 Flow Rate 3.0L 05/03 1200 B/P 122/74 05/03 0800 Temp 98.7 05/03 0800 Pulse 75 05/03 0800 Resp 16 05/03 0800 Intake & Output 05/03 0000 05/02 1600 05/02 0800 Intake Total 1533 2104 Output Total 100 Balance 1433 2104 Intake, IV 933 2084 Intake, Oral 600 20 Number 0 Bowel Movements Output, Urine 100 Patient 200 lb Weight Weight Bed scale Measurement Method Exam General Appearance: well developed/nourished, no apparent distress, alert, awake Head: atraumatic Respiratory: normal breath sounds, no respiratory distress, lungs clear, tender midsternal due to CPR Cardiovascular: regular rate/rhythm, edema, gallop Gastrointestinal: normal bowel sounds, soft, non-tender Extremities: normal inspection, normal capillary refill, normal range of motion, no edema Central Line Site: left IJ Date In: 05/01/17 Need for Catheter: pressors IV Drips IV Drips: NS 50 cc per hours Current Medications: Current Medications Sig/Alysia Start time Last Medication Dose Route Stop Time Status Admin Acetaminophen 650 MG .STK-MED ONE 05/04 2348 DC PO 05/04 2349 Acetaminophen 650 MG .STK-MED ONE 05/04 1803 DC PO 05/04 1804 Acetaminophen 650 MG Q6P PRN 05/02 1315 AC 05/04 PO 2349 Heparin Sodium 25,000 UNIT Q24H 05/02 1130 DC 05/04 (Porcine) IV 1250 Sodium Chloride 500 ML Magnesium Oxide 400 MG BID 05/05 1000 AC 05/05 PO 1010 Metoprolol Tartrate 50 MG BID 05/05 1000 AC 05/05 PO 1010 Metoprolol Tartrate 25 MG BID 05/04 1000 DC 05/04 PO 2150 Morphine Sulfate 2 MG Q4P PRN 05/02 1530 AC 05/03 IV 2145 Ondansetron HCl 4 MG Q4-6 PRN PRN 05/02 1545 AC 05/03 IV 2144 Pantoprazole Sodium 40 MG DAILY 05/02 1320 AC 05/05 IV 1012 Phosphate 250 MG PC AND AT BEDTIME 05/03 1300 AC 05/05 PO 1300 Polyethylene Glycol 17 GM DAILY PRN 05/05 0615 AC 05/05 PO 1009 Rivaroxaban 20 MG 1700 05/06 1700 AC PO Rivaroxaban 20 MG DAILY 05/05 1000 DC 05/05 PO 1009 Senna/Docusate Sodium 1 TAB BID PRN 05/05 0615 AC 05/05 PO 1008 Silver Sulfadiazine 1 LOURDES TID PRN 05/05 0845 AC 05/05 TOP 1008 Impression/Plan Impression/Problem List Impression: 76 year old gentleman with pmh of HTN, afib on Xarelto about 1month ago, HLP who was in outpatient suit for elective cardioversion developed cardiac arrest, status post CPR and possible cardiogenic shock was on 2 pressors. #Respiratory -Patient has a good O2 saturation on 3L, keep O2 saturation over 92% -Caution for pain medication, minimal use of narcotics -incesntive spirometry at least 10 times per hour -CXR in the morning showed cardiomegaly with no pleural effusion #Infectious diseases -NO Fevers or elevated WBC -No Cordon #Cardiovascular -Off all pressors -Keep IJ for now -mild IV hydration 50 mL normal Saline per hour due to poor oral intake -CVP is 12 -Continue to monitor blood pressure and hemodynamics -On IV heparin -Patient troponin maxed out at 2.07, no ekg changes -Patient will need echocardiogram in couple of days. -we will Follow cardiology notes #Hematologic -H&H 11.5 from 14 possibly dilutional versus anemia, continue to monitor H&H. -We will check iron studies, B12, folate if the anemia progressed -On IV heparin -We will check CBC daily #Metabolic -Continue to monitor electrolytes, BUN/creatinine and replete the electrolytes accordingly -Continue to monitor LFT #Alimentary -Patient is on heart healht diet but has poor oral intake -Patient was encouraged to take by mouth meals #Neurologic -Alert and oriented 3 -Watch for seizures, change in mental status DVT prophylaxis chemical and IV heparin, full code, Tylenol for pain, heart healthy diet Problem List: 1. Ventricular fibrillation Pain Ratin Pain Location: chest Tomorrow's Labs & Rationales: CBC ICU bundle Plan DVT/Prophylaxis: mechanical, pharmacological
[2017-05-03 16:00] VITALS: BP 108/72
--- NOTE | 2017-05-03 18:50 | PN- Cardiology ---
Subjective Subjective: The patient is alert and awake. He is comfortable with no current complaints. No chest pain. No shortness of breath. No palpitations. He complains of rib pain at the site of chest compressions Objective Vital Signs and I&Os Vital Signs Date Time Temp Pulse Resp B/P B/P Pulse O2 O2 Flow FiO2 Mean Ox Delivery Rate 05/03 1600 98.1 68 20 108/72 96 Nasal 3.0L Cannula 05/03 1600 96 Nasal 3.0L Cannula 05/03 1200 95 Nasal 3.0L Cannula 05/03 1100 Nasal 4.0L Cannula 05/03 0800 98.7 75 16 122/74 95 Nasal 4.0L Cannula 05/03 0800 95 Nasal 4.0L Cannula 05/03 0600 77 101/57 05/03 0400 93 Nasal 4.0L Cannula 05/03 0000 99.1 96 13 116/67 94 Nasal 4.0L Cannula 05/03 0000 94 Nasal 4.0L Cannula 05/02 2159 97 104/65 05/02 2045 98 107/64 05/02 2000 98 Nasal 5.0L Cannula 05/02 1849 99.7 104 12 98/61 95 Nasal 5.0L Cannula Intake & Output 05/03 1600 05/03 0800 05/03 0000 05/02 1600 05/02 0800 05/02 0000 Intake Total 1135 1428 1533 2104 Output Total 800 400 100 Balance 335 1028 1433 2104 Intake, IV 895 8454 167 0805 Intake, Oral 240 240 600 20 Number 0 0 Bowel Movements Output, Urine 800 400 100 Patient 200 lb Weight Weight Bed scale Measurement Method Physical Exam: Gen: NAD HEENT: normal Lungs: clear to auscultation, normal resp. effort Heart: RRR, S1, S2, no murmurs Abdomen: Soft, nontender, no masses Extremities: No clubbing, cyanosis, or edema. Neuro: Alert and oriented x 3, cranial nerves intact Current Medications: Current Medications Sig/Alysia Start time Last Medication Dose Route Stop Time Status Admin Acetaminophen 650 MG Q6P PRN 05/02 1315 AC PO Amiodarone HCl/ 360 MG Q12H 05/02 1115 DC Dextrose IV N/A 1 UNIT Dobutamine HCl 250 MG Q8H 05/02 2200 DC 05/02 Dextrose/Water 250 ML IV 2159 Dobutamine HCl 250 MG Q4H 05/02 1600 DC 05/02 Dextrose/Water 250 ML IV 1600 Dopamine HCl 400 MG Q24H 05/02 1245 DC 05/02 Dextrose/Water 500 ML IV 1517 Heparin Sodium 25,000 UNIT Q24H 05/02 1130 AC 05/03 (Porcine) IV 1449 Sodium Chloride 500 ML Ibuprofen 600 MG ONCE ONE 05/03 1715 DC 05/03 PO 05/03 1716 1716 Morphine Sulfate 2 MG Q4P PRN 05/02 1530 05/03 IV 1015 Norepinephrine 4 MG Q4H 05/02 1245 DC 05/02 Dextrose/Water 250 ML IV 1245 Ondansetron HCl 4 MG Q4-6 PRN PRN 05/02 1545 05/03 IV 0611 Pantoprazole Sodium 40 MG DAILY 05/02 1320 05/03 IV 1015 Phosphate 250 MG PC AND AT BEDTIME 05/03 1300 AC 05/03 PO 1836 Phosphate 250 MG PC AND AT BEDTIME 05/02 2100 DC 05/03 PO 05/03 0901 1146 Potassium Chloride 20 MEQ Q1H 05/03 1145 DC 05/03 IV 05/03 1146 1146 Potassium Chloride 40 MEQ ONCE ONE 05/03 0700 DC PO 05/03 0701 Potassium Chloride 20 MEQ ONCE ONE 05/03 0630 DC 05/03 IV 05/03 0631 0638 Sodium Chloride 1,000 ML Q20H 05/03 1445 AC 05/03 IV 1550 Sodium Chloride 1,000 ML Q20H 05/03 1200 DC IV Sodium Chloride 1,000 ML Q10H 05/03 1145 DC 05/03 IV 1147 Sodium Chloride 1,000 ML Q10H 05/03 0230 DC 05/03 IV 0200 Results Last 48 Hrs of Labs/Mics: Laboratory Tests 05/03/17 1135: APTT 80 H 05/03/17 0500: Troponin I Cancelled 05/03/17 0455: Anion Gap 7, Estimated GFR > 60, Glucose 86, Calcium 8.0 L, Phosphorus 3.1, Magnesium 2.3, Total Bilirubin 1.2, AST 81 H, ALT 93 H, Troponin I 0.86 *H, Albumin 2.9 L, CBC w Diff NO MAN DIFF REQ, RBC 3.74 L, MCV 93.5, MCH 31.3 H, RDW 13.4, MPV 9.5, Gran % 84.9 H, Lymphocytes % 8.6 L, Monocytes % 6.3, Eosinophils % 0, Basophils % 0.2, Absolute Granulocytes 6.9 H, Absolute Lymphocytes 0.7 L, Absolute Monocytes 0.5, Absolute Eosinophils 0, Absolute Basophils 0, PUBS MCHC 33.4 05/02/17 2220: Troponin I 1.79 *H, APTT 70 H 05/02/17 1700: Anion Gap 8, Estimated GFR 59 L, Glucose 84, Lactic Acid 1.1, Calcium 8.3 L, Phosphorus 1.6 L, Magnesium 2.4 H, Total Bilirubin 1.3, AST 97 H, ALT 112 H, Troponin I 2.20 *H, Albumin 3.1 L 05/02/17 1320: pH 7.41, pCO2 28 L, pO2 68 L, HCO3 17 L, ABG O2 Sat (Measured) 93.0 L, P-50 (Temp Corrected) Y, Carboxyhemoglobin 0.5 L, O2 Concentration % 8L, Temperature 97.0, O2 Delivery Method N/C PENDANT, Phlebotomy Draw Site RIGHT RADIAL 05/02/17 1120: Anion Gap 12, Estimated GFR > 60, Glucose 255 H, Lactic Acid 5.4 H, Calcium 9.0, Phosphorus 4.0, Magnesium 3.3 H, Total Bilirubin 1.3, AST 102 H, ALT 116 H, Creatine Kinase 107, Troponin I 0.02, Albumin 3.6, PT 16.2 H, INR 1.55 H, CBC w Diff MAN DIFF ORDERED, RBC 4.51 L, MCV 93.5, MCH 31.1 H, RDW 13.7, MPV 10.1, Gran % 61.2, Lymphocytes % 34.5, Monocytes % 3.7, Eosinophils % 0.3, Basophils % 0.3, Absolute Granulocytes 7.4 H, Segmented Neutrophils 53, Band Neutrophils 3, Absolute Lymphocytes 4.2 H, Lymphocytes 38, Monocytes 4, Absolute Monocytes 0.4, Absolute Eosinophils 0, Absolute Basophils 0, Myelocytes 2 H, Platelet Estimate ADEQUATE, Normocytic RBCs VERIFIED, Normochromic RBCs VERIFIED, PUBS MCHC 33.3 05/02/17 1040: pH 7.32 L, pCO2 36, pO2 64 L, HCO3 18 L, ABG O2 Sat (Measured) 89.0 L, Carboxyhemoglobin 1.0 L, O2 Concentration % 100%, O2 Delivery Method [id number]-BAG, Phlebotomy Draw Site LEFT RADIAL Microbiology 05/02 1245 UPPER RESP: Surveillance Culture - COMP 05/02 1245 GI: Surveillance Culture - COMP Recent Imaging Studies: RUSS: Left ventricular cavity size at the upper limits of normal. Normal left ventricular wall thickness. Moderately reduced global left ventricular systolic function. Left ventricular ejection fraction is estimated at 35 %. Normal right ventricular size and function. Mild right atrial dilatation. Moderate left atrial dilatation. No thrombus detected in the left atrial appendage. Patent foramen ovale. [id number] mitral regurgitation. Mildly dilated proximal ascending aorta (4.2 cm). Following the RUSS, cardioversion was attempted using 200 joules of synchronized energy x2. Following the 2nd delivery the patient developed VT/VF and ACLS protocol was immediately initiated with eventual return of spontaneous circulation. The patient was transferred to the ICU for additional treatment/monitoring. Assessment/Plan Assessment/Plan Assessment: 1. Atrial fibrillation, status post cardioversion 2. Ventricular fibrillation cardiac arrest, precipitated by cardioversion 3. Cardiogenic shock, resolved Plan: * Continue heparin drip * Off pressors * Metoprolol on hold for hypotension, will consider restarting tomorrow Continue telemetry? Yes
[2017-05-04] VITALS: BP 94/57
[2017-05-04 00:15] LABS: PTT 87 SEC (25-37)
[2017-05-04 06:52] LABS: ABSOLUTE GRANULOCYTE CT 5.9 /CUMM (1.4-6.5); ABSOLUTE LYMPH COUNT 0.8 /CUMM (1.2-3.4); ABSOLUTE MONOCYTE COUNT 0.5 /CUMM (0.10-0.60); BASOPHIL % 0.2 % (0.0-2.0); EOSINOPHIL % 1.3 % (0-5); GRANULOCYTE % 81.2 % (42.2-75.2); MEAN CORPUSCULAR HGB CONC 33.1 G/DL (33.0-37.0); MEAN CORPUSCULAR VOLUME 93.5 FL (80.0-94.0); MEAN PLATELET VOLUME 10.4 FL (7.4-10.4); PLATELET COUNT 105 /CUMM (130-400); RBC DISTRIBUTION WIDTH 13.6 % (11.5-14.5); RED BLOOD CELL CT 3.63 /CUMM (4.70-6.10); WHITE BLOOD CELL COUNT 7.3 /CUMM (4.8-10.8)
[2017-05-04 08:00] VITALS: BP 124/72
--- NOTE | 2017-05-04 09:23 | PN- Resident CRCU ---
Subjective HPI/CRCU Issues: Ventricular tachycardia secondary to an elective cardioversion for A. fib Status post CPR 24 Hour Events: Patient is seen and examined bedside. Pleasantly cooperative and engaging. Does not offer any acute complaints of chest pain, palpitation, increased shortness of breath, fever, chills, mental confusion, abdominal pain or dysuria. Patient was noted to convert back to A. fib on radiation monitor, with confirmation with EKG. Objective Vital Signs & I&O Last 8 Hrs of Vitals and I&O: Vital Signs Date Time Temp Pulse Resp B/P B/P Pulse O2 O2 Flow FiO2 Mean Ox Delivery Rate 05/04 1600 99.3 84 20 118/64 93 Room Air 05/04 1113 95 Nasal 4.0L Cannula 05/04 1023 117 132/74 05/04 0800 98.8 68 20 124/72 93 Nasal 3.0L Cannula 05/04 0800 93 Nasal 3.0L Cannula 05/04 0400 94 Nasal 3.0L Cannula 05/04 0000 98.6 60 13 94/57 95 Nasal 3.0L Cannula 05/04 0000 95 Nasal 3.0L Cannula 05/03 2000 93 Nasal 3.0L Cannula Intake & Output 05/04 1600 05/04 0800 05/04 0000 Intake Total 800 715 816 Output Total 750 400 400 Balance 50 315 416 Intake, IV 350 595 576 Intake, Oral 450 120 240 Number 0 0 Bowel Movements Output, Urine 750 400 400 Intake & Output 05/04 1600 Intake Total 800 Output Total 750 Balance 50 Intake, IV 350 Intake, Oral 450 Output, Urine 750 Exam General Appearance: well developed/nourished, no apparent distress, alert, awake , comfortable Head: atraumatic Neck: RIGHT IJ catheter intact, no obvious sign of acute bleeding or exit site infection noted Respiratory: no respiratory distress, quiet respiration Cardiovascular: IRR Gastrointestinal: normal bowel sounds, soft, non-tender Extremities: normal inspection, normal capillary refill, no edema Current Medications: Current Medications Sig/Alysia Start time Last Medication Dose Route Stop Time Status Admin Acetaminophen 650 MG .STK-MED ONE 05/04 05 DC PO 05/04 05 Acetaminophen 650 MG Q6P PRN 05/02 1315 AC 05/04 PO 0523 Heparin Sodium 25,000 UNIT Q24H 05/02 1130 AC 05/04 (Porcine) IV 1250 Sodium Chloride 500 ML Ibuprofen 600 MG ONCE ONE 05/04 1100 DC 05/04 PO 05/04 1101 1100 Ibuprofen 600 MG ONCE ONE 05/03 1715 DC 05/03 PO 05/03 1716 1716 Metoprolol Tartrate 25 MG BID 05/04 1000 AC 05/04 PO 1023 Morphine Sulfate 2 MG Q4P PRN 05/02 1530 AC 05/03 IV 2145 Ondansetron HCl 4 MG Q4-6 PRN PRN 05/02 1545 AC 05/03 IV 2144 Pantoprazole Sodium 40 MG DAILY 05/02 1320 AC 05/04 IV 1023 Phosphate 250 MG PC AND AT BEDTIME 05/03 1300 AC 05/04 PO 1251 Sodium Chloride 1,000 ML Q20H 05/03 1445 DC 05/03 IV 1550 Impression/Plan Impression/Problem List Impression: This is a 76 year old very pleasent gentleman with pmh of HTN, afib on Xarelto about 1month ago, HLP who was in outpatient suit for elective cardioversion developed wide complexes arythmias, status post CPR and possible cardiogenic shock was on 2 pressors. Impression and plan Respiratory: Saturating well above 90% on 2 L nasal cannula. Does not endorse any pleuritic pain during inspiration. Chest x-ray unremarkable for any rib fractures or lung inury secondary to CPR. Infection: Afebrile. White blood count normal. Right internal jugular catheter did not show any signs of exit site infection. Was removed today without any complications. Cardiovascular: Status post CPR 2 days ago secondary to ventricular fibrillation during cardioversion for A. fib. Also found to be in cardiogenic shock requiring dobutamine and Levophed pressor (depressed EF based on bedside echo). Pressures were continued after adequate MAP with stabilization. Patient converted back to A. fib today with controlled rate. Already optimized with heparin drip since admission with eventual goal of transitioning back to NOAC, prior to discharge, restart metoprolol home dose. Downgraded to telemetry. Hematology: Platelets levels stable in the setting of heparin use. H&H stable. Alimentary: On heart healthy diet. Neurological: Intact mentation with alert and oriented 3. No acute altered mental status was noted since admission. Problem List: 1. Ventricular fibrillation Pain Ratin Pain Location: chest wall Pain Plan: PER [facility] Tomorrow's Labs & Rationales: CBC BEP/MAG Plan DVT/Prophylaxis: pharmacological
--- NOTE | 2017-05-04 09:29 | PN- CRCU ---
Subjective HPI/Critical Care Issues: pt seen and examined doing better off pressors pain controlled Objective Current Medications: Current Medications Sig/Alysia Start time Last Medication Dose Route Stop Time Status Admin Acetaminophen 650 MG Q6P PRN 05/02 1315 AC 05/04 PO 0523 Heparin Sodium 25,000 UNIT Q24H 05/02 1130 AC 05/03 (Porcine) IV 1449 Sodium Chloride 500 ML Ibuprofen 600 MG ONCE ONE 05/03 1715 DC 05/03 PO 05/03 1716 1716 Metoprolol Tartrate 25 MG BID 05/04 1000 AC PO Morphine Sulfate 2 MG Q4P PRN 05/02 1530 AC 05/03 IV 2145 Ondansetron HCl 4 MG Q4-6 PRN PRN 05/02 1545 05/03 IV 2144 Pantoprazole Sodium 40 MG DAILY 05/02 1320 AC 05/03 IV 1015 Phosphate 250 MG PC AND AT BEDTIME 05/03 1300 AC 05/03 PO 2139 Potassium Chloride 20 MEQ Q1H 05/03 1145 DC 05/03 IV 05/03 1146 1146 Sodium Chloride 1,000 ML Q20H 05/03 1445 AC 05/03 IV 1550 Sodium Chloride 1,000 ML Q20H 05/03 1200 DC IV Sodium Chloride 1,000 ML Q10H 05/03 1145 DC 05/03 IV 1147 Sodium Chloride 1,000 ML Q10H 05/03 0230 DC 05/03 IV 0200 Vital Signs & I&O Last 24 Hrs of Vitals and I&O: Vital Signs Date Time Temp Pulse Resp B/P B/P Pulse O2 O2 Flow FiO2 Mean Ox Delivery Rate 05/04 0800 98.8 68 20 124/72 93 Nasal 3.0L Cannula 05/04 0800 93 Nasal 3.0L Cannula 05/04 0400 94 Nasal 3.0L Cannula 05/04 0000 98.6 60 13 94/57 95 Nasal 3.0L Cannula 05/04 0000 95 Nasal 3.0L Cannula 05/03 2000 93 Nasal 3.0L Cannula 05/03 1600 98.1 68 20 108/72 96 Nasal 3.0L Cannula 05/03 1600 96 Nasal 3.0L Cannula 05/03 1200 95 Nasal 3.0L Cannula 05/03 1100 Nasal 4.0L Cannula Intake & Output 05/04 1600 05/04 0800 05/04 0000 Intake Total 715 816 Output Total 400 400 Balance 315 416 Intake, IV 595 576 Intake, Oral 120 240 Number 0 0 Bowel Movements Output, Urine 400 400 Exam Other Physical Findings: gen awake and alert heent ncat cvs s1, s2 lungs diminished at bases abd soft bs+ ext without edema tenderness midchest Results Last 24 Hrs of Lab Results: Laboratory Tests 05/04/17 0513: Anion Gap 3 L, Estimated GFR > 60, Glucose 77, Calcium 7.9 L, Phosphorus 2.4 L, Magnesium 2.1, Total Bilirubin 0.8, AST 59, ALT 77 H, Albumin 2.7 L, CBC w Diff NO MAN DIFF REQ, RBC 3.63 L, MCV 93.5, MCH 31.0, RDW 13.6, MPV 10.4, Gran % 81.2 H, Monocytes % 6.8, Eosinophils % 1.3, Basophils % 0.2, Absolute Granulocytes 5.9, Absolute Lymphocytes 0.8 L, Absolute Monocytes 0.5, PUBS MCHC 33.1 05/03/17 2328: APTT 87 H 05/03/17 1135: APTT 80 H Impression/Plan Impression/Plan Impression/Plan: Impression 76 year old man * s/p cardiac arrest, ventricular arrhythmia after cardioversion electively for a.fib * chest contusion with possible fractures of ribs/costochondritic pain * cardiogenic shock resolved - cardiomyopathy, likely underlying from cpr Plan Respiratory -reduce fio2 as tolerated -repeat cxr this morning -chest contustion post compressions -aggressive pain control -incentive spirometry q1 hour ID -no acute issues CVS -f/u cardiology recommendations -on heparin drip, previously on xarelto -per cardiology limited echo repeat early next week Heme -heparin drip monitoring Metabolic -replete electrolytes to goal -[facility] Alimentary -cardiac diet, with a bedside swallow Neuro -pain control DVT prophylaxis at all times TTS 35 min will assess with cardiology if okay for tele
[2017-05-04 11:54] LABS: PTT 81 SEC (25-37)
--- NOTE | 2017-05-04 14:00 | NUR ---
Patient is alert and oriented x's 3, able to follow commands and answer questions appropriately. At approx 0900 he was noted to convert into a-fib with a heart rate ranging from 100-130's. Dr. Saenz notified- EKG done to confirm and pt was started on his home dose of po lopressor. BP remains stable in the 120-130's. Dr. Stone notified of event. Heparin gtt continues to infuse with the next ptt due at 2330- He is currently on room air, O2 sats 91-94%. Denies SOB- a productive cough is noted with some scant blood tinged sputum. He is voiding clear yellow urine in the urinal. Abdomen is soft and non tender with + bowel sounds. Tolerating po well. Skin appears intact with no areas of pressure injury noted. His RIJ TLC was removed by house staff and a dressing was applied. He ambulated around room and is currently OOB to chair. No difficulty ambulating. IVF have been d/c. Medicated with po motrin and ice packs for intermittent c/o chest pain s/p CPR. Family at the bedside and updated on POC. He is a tele hold but remains in the ICU. Vitals stable. Will continue to closely monitor patient.
--- NOTE | 2017-05-04 14:37 | PN- Cardiology ---
Subjective Subjective: Feeling better. He continues to complain of rib pain at the site of chest compressions. No other chest pain. No shortness of breath. No palpitations. He is back in atrial fibrillation, with ventricular rate under control Objective Vital Signs and I&Os Vital Signs Date Time Temp Pulse Resp B/P B/P Pulse O2 O2 Flow FiO2 Mean Ox Delivery Rate 05/04 1113 95 Nasal 4.0L Cannula 05/04 1023 117 132/74 05/04 0800 98.8 68 20 124/72 93 Nasal 3.0L Cannula 05/04 0800 93 Nasal 3.0L Cannula 05/04 0400 94 Nasal 3.0L Cannula 05/04 0000 98.6 60 13 94/57 95 Nasal 3.0L Cannula 05/04 0000 95 Nasal 3.0L Cannula 05/03 2000 93 Nasal 3.0L Cannula 05/03 1600 98.1 68 20 108/72 96 Nasal 3.0L Cannula 05/03 1600 96 Nasal 3.0L Cannula Intake & Output 05/04 1600 05/04 0800 05/04 0000 05/03 1600 05/03 0800 05/03 0000 Intake Total 800 705 938 5637 1428 1533 Output Total 750 400 400 800 400 100 Balance 50 315 904 669 7313 1433 Intake, IV 350 595 398 452 2279 933 Intake, Oral 450 120 240 240 240 600 Number 0 0 0 0 Bowel Movements Output, Urine 750 400 400 800 400 100 Physical Exam: Gen: NAD HEENT: normal Lungs: clear to auscultation, normal resp. effort Heart: RRR, S1, S2, no murmurs Abdomen: Soft, nontender, no masses Extremities: No clubbing, cyanosis, or edema. Neuro: Alert and oriented x 3, cranial nerves intact Current Medications: Current Medications Sig/Alysia Start time Last Medication Dose Route Stop Time Status Admin Acetaminophen 650 MG .STK-MED ONE 05/04 0522 DC PO 05/04 0523 Acetaminophen 650 MG Q6P PRN 05/02 1315 AC 05/04 PO 0523 Heparin Sodium 25,000 UNIT Q24H 05/02 1130 AC 05/04 (Porcine) IV 1250 Sodium Chloride 500 ML Ibuprofen 600 MG ONCE ONE 05/04 1100 DC 05/04 PO 05/04 1101 1100 Ibuprofen 600 MG ONCE ONE 05/03 1715 DC 05/03 PO 05/03 1716 1716 Metoprolol Tartrate 25 MG BID 05/04 1000 AC 05/04 PO 1023 Morphine Sulfate 2 MG Q4P PRN 05/02 1530 AC 05/03 IV 2145 Ondansetron HCl 4 MG Q4-6 PRN PRN 05/02 1545 AC 05/03 IV 2144 Pantoprazole Sodium 40 MG DAILY 05/02 1320 AC 05/04 IV 1023 Phosphate 250 MG PC AND AT BEDTIME 05/03 1300 AC 05/04 PO 1251 Sodium Chloride 1,000 ML Q20H 05/03 1445 DC 05/03 IV 1550 Sodium Chloride 1,000 ML Q20H 05/03 1200 DC IV Results Last 48 Hrs of Labs/Mics: Laboratory Tests 05/04/17 1130: APTT 81 H 05/04/17 0513: Anion Gap 3 L, Estimated GFR > 60, Glucose 77, Calcium 7.9 L, Phosphorus 2.4 L, Magnesium 2.1, Total Bilirubin 0.8, AST 59, ALT 77 H, Albumin 2.7 L, CBC w Diff NO MAN DIFF REQ, RBC 3.63 L, MCV 93.5, MCH 31.0, RDW 13.6, MPV 10.4, Gran % 81.2 H, Monocytes % 6.8, Eosinophils % 1.3, Basophils % 0.2, Absolute Granulocytes 5.9, Absolute Lymphocytes 0.8 L, Absolute Monocytes 0.5, PUBS MCHC 33.1 05/03/17 2328: APTT 87 H 05/03/17 1135: APTT 80 H 05/03/17 0500: Troponin I Cancelled 05/03/17 0455: Anion Gap 7, Estimated GFR > 60, Glucose 86, Calcium 8.0 L, Phosphorus 3.1, Magnesium 2.3, Total Bilirubin 1.2, AST 81 H, ALT 93 H, Troponin I 0.86 *H, Albumin 2.9 L, CBC w Diff NO MAN DIFF REQ, RBC 3.74 L, MCV 93.5, MCH 31.3 H, RDW 13.4, MPV 9.5, Gran % 84.9 H, Lymphocytes % 8.6 L, Monocytes % 6.3, Eosinophils % 0, Basophils % 0.2, Absolute Granulocytes 6.9 H, Absolute Lymphocytes 0.7 L, Absolute Monocytes 0.5, Absolute Eosinophils 0, Absolute Basophils 0, PUBS MCHC 33.4 05/02/17 2220: Troponin I 1.79 *H, APTT 70 H 05/02/17 1700: Anion Gap 8, Estimated GFR 59 L, Glucose 84, Lactic Acid 1.1, Calcium 8.3 L, Phosphorus 1.6 L, Magnesium 2.4 H, Total Bilirubin 1.3, AST 97 H, ALT 112 H, Troponin I 2.20 *H, Albumin 3.1 L Assessment/Plan Assessment/Plan Assessment: 1. Atrial fibrillation, status post cardioversion 2. Ventricular fibrillation cardiac arrest, precipitated by cardioversion 3. Cardiogenic shock, resolved Plan: * Continue heparin drip, change to NOAC prior to discharge * Off pressors * Restart metoprolol 12.5 mg by mouth twice a day for rate control * [place] to telemetry. Continue telemetry? Yes
[2017-05-04 16:00] VITALS: BP 118/64
[2017-05-04 22:56] LABS: PTT 95 SEC (25-37)
[2017-05-04 23:55] VITALS: BP 100/60
[2017-05-05 06:28] LABS: ABSOLUTE BASOPHIL COUNT 0 /CUMM (0.0-0.2); ABSOLUTE EOSINOPHIL COUNT 0.1 /CUMM (0.0-0.7); ABSOLUTE LYMPH COUNT 0.9 /CUMM (1.2-3.4); ABSOLUTE MONOCYTE COUNT 0.4 /CUMM (0.10-0.60); BASOPHIL % 0.2 % (0.0-2.0); GRANULOCYTE % 77.2 % (42.2-75.2); HEMATOCRIT 38.7 % (42-52); MEAN CORPUSCULAR HGB 30.9 PG (27.0-31.0); MEAN CORPUSCULAR VOLUME 93.6 FL (80.0-94.0); MEAN PLATELET VOLUME 9.4 FL (7.4-10.4); PLATELET COUNT 140 /CUMM (130-400); RBC DISTRIBUTION WIDTH 13.6 % (11.5-14.5); RED BLOOD CELL CT 4.13 /CUMM (4.70-6.10); WHITE BLOOD CELL COUNT 6.4 /CUMM (4.8-10.8)
[2017-05-05 06:36] LABS: PTT 75 SEC (25-37)
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
--- NOTE | 2017-05-05 07:56 | NUR ---
0545 PT AWAKE. BLOOD WORK DONE. MIN ASSIST TO BSC. NO BM. HAD ORANGE JUICE & PRUNE JUICE. INFORMED DR. UPTON RE. PT'S STATUS. ORDERED LAXATIVE. PT VERY ANXIOUS TO GO HOME. 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 REASSURANCE GIVEN. DR. UPTON AWARE OF PT WANTING TO GO HOME. NO PAIN VOICED. CONT TO MONITOR. [id number] RN GORDY ASSUME CARE.
[2017-05-05 08:00] VITALS: BP 120/80
--- NOTE | 2017-05-05 08:02 | RADIOLOGY REPORT ---
EXAMINATION: XR PORTABLE CHEST CLINICAL INFORMATION: Rule out pneumothorax, pneumonia, atelectasis. Status post CPR. COMPARISON: 05/03/2017 TECHNIQUE: Portable frontal view of the chest was obtained. FINDINGS: Cardiac leads overlie the chest. The lungs are well expanded. Increased opacity at the right infrahilar region. Streaky retrocardiac opacity. No pneumothorax. No significant pleural effusion. The cardiomediastinal silhouette remains prominent. No acute osseous abnormality. IMPRESSION: No pneumothorax. Streaky bibasilar opacities favor atelectasis, although pneumonia not excluded.
--- NOTE | 2017-05-05 08:30 | PN- Cardiology ---
Subjective Subjective: The patient is awake, alert The events of the last 24 hours as well as telemetry were reviewed. Atrial fibrillation was noted only. No further arrhythmias were noted. No clear QT prolongation is noted currently. The patient denies chest pains nor palpitations. He has ambulated in his room without difficulty Review of Systems: The review of systems is negative for chest pains, palpitations nor lightheadedness. The remainder of the 14 point review of systems is noncontributory with the exception of above. Objective Vital Signs and I&Os Vital Signs Date Time Temp Pulse Resp B/P B/P Pulse O2 O2 Flow FiO2 Mean Ox Delivery Rate 05/05 0000 93 Room Air 05/04 2355 98.6 81 19 100/60 92 Room Air 05/04 2150 88 110/60 05/04 1600 99.3 84 20 118/64 93 Room Air 05/04 1600 92 Room Air 05/04 1113 95 Nasal 4.0L Cannula 05/04 1023 117 132/74 Intake & Output 05/05 1600 05/05 0800 05/05 0000 05/04 1600 05/04 0800 05/04 0000 Intake Total 517 454 800 715 816 Output Total 1400 350 750 400 400 Balance -883 104 50 315 416 Intake, IV 157 214 350 595 576 Intake, Oral 360 240 450 120 240 Number 0 0 0 0 Bowel Movements Output, Urine 1400 350 750 400 400 Physical Exam: General: Nontoxic, no apparent distress. HEENT: Sclera and conjunctiva within normal limits, without xanthelasmas. Neck: Carotids 2+ without bruits. Respiratory: Clear to auscultation, air movement is good, without accessory respiratory muscle use. Heart: Irregularly irregular rate and rhythm, without murmurs, without JVD. Abdomen: Soft, nontender, no masses, normoactive bowel sounds. Extremities: Without clubbing, cyanosis, without edema. Neuro: Nonfocal exam, strength, 5 out of 5 Skin: Within normal limits without lesions. Psych: Mood and affect: Normal Current Medications: Current Medications Sig/Alysia Start time Last Medication Dose Route Stop Time Status Admin Acetaminophen 650 MG .STK-MED ONE 05/04 2348 DC PO 05/04 2349 Acetaminophen 650 MG .STK-MED ONE 05/04 1803 DC PO 05/04 1804 Acetaminophen 650 MG Q6P PRN 05/02 1315 AC 05/04 PO 2349 Heparin Sodium 25,000 UNIT Q24H 05/02 1130 AC 05/04 (Porcine) IV 1250 Sodium Chloride 500 ML Ibuprofen 600 MG ONCE ONE 05/04 1100 DC 05/04 PO 05/04 1101 1100 Magnesium Oxide 400 MG BID 05/05 1000 AC PO Metoprolol Tartrate 50 MG BID 05/05 1000 AC PO Metoprolol Tartrate 25 MG BID 05/04 1000 DC 05/04 PO 2150 Morphine Sulfate 2 MG Q4P PRN 05/02 1530 AC 05/03 IV 2145 Ondansetron HCl 4 MG Q4-6 PRN PRN 05/02 1545 AC 05/03 IV 2144 Pantoprazole Sodium 40 MG DAILY 05/02 1320 AC 05/04 IV 1023 Phosphate 250 MG PC AND AT BEDTIME 05/03 1300 AC 05/04 PO 2146 Polyethylene Glycol 17 GM DAILY PRN 05/05 0615 AC PO Senna/Docusate Sodium 1 TAB BID PRN 05/05 0615 AC PO Sodium Chloride 1,000 ML Q20H 05/03 1445 DC 05/03 IV 1550 Results Last 48 Hrs of Labs/Mics: Laboratory Tests 05/05/17 0600: Anion Gap 7, Estimated GFR > 60, Glucose 106 H, Calcium 8.7, Phosphorus 2.7, Magnesium 1.9, Total Bilirubin 1.1, AST 50, ALT 77 H, Albumin 3.1 L, APTT 75 H, CBC w Diff NO MAN DIFF REQ, RBC 4.13 L, MCV 93.6, MCH 30.9, RDW 13.6, MPV 9.4, Gran % 77.2 H, Lymphocytes % 14.0 L, Monocytes % 6.6, Eosinophils % 2.0, Basophils % 0.2, Absolute Granulocytes 5.0, Absolute Lymphocytes 0.9 L, Absolute Monocytes 0.4, Absolute Eosinophils 0.1, Absolute Basophils 0, PUBS MCHC 33.0 05/04/17 2210: APTT 95 H 05/04/17 1130: APTT 81 H 05/04/17 0513: Anion Gap 3 L, Estimated GFR > 60, Glucose 77, Calcium 7.9 L, Phosphorus 2.4 L, Magnesium 2.1, Total Bilirubin 0.8, AST 59, ALT 77 H, Albumin 2.7 L, CBC w Diff NO MAN DIFF REQ, RBC 3.63 L, MCV 93.5, MCH 31.0, RDW 13.6, MPV 10.4, Gran % 81.2 H, Monocytes % 6.8, Eosinophils % 1.3, Basophils % 0.2, Absolute Granulocytes 5.9, Absolute Lymphocytes 0.8 L, Absolute Monocytes 0.5, PUBS MCHC 33.1 05/03/17 2328: APTT 87 H 05/03/17 1135: APTT 80 H Assessment/Plan Assessment/Plan The patient is a 76-year-old gentleman with a past medical history of hyperlipidemia as well as atrial fibrillation. He presented for an elective cardioversion, which was complicated by ventricular fibrillation during the same. ACLS was initiated, and the patient was recovered. Ventricular fibrillation: Following a second cardioversion attempt using 200 J. The fibrillation was likely the result of the cardioversion; however, a postevent EKG demonstrated normal prolonged QT. Subsequent EKGs did not demonstrate this. The prolonged QT is likely secondary to his arrest; however, we will obtain consultation from electrophysiology to better ascertain the need for further treatment options including the possible need for discharge with a LifeVest or antiarrhythmics. Cardiomyopathy: The patient has a cardiomyopathy with an LVEF of 35-40%. 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 We have increased his dose of metoprolol for improved rate control. Further medication titration, including the addition of an TREMAYNE inhibitor/insulin receptor maxwell will be made following evaluation of his blood pressure. A repeat echocardiogram (limited) will be performed today Atrial fibrillation: Anticoagulation will be switched to Xarelto (patient has previously been on the same). We will target for rate control at this time and further evaluation will be made by electrophysiology. The patient will ambulate, and we will consider discharge in the a.m. if stable. Continue telemetry? Yes
--- NOTE | 2017-05-05 08:56 | PN- Pulmonary ---
Subjective HPI/Critical Care Issues: pt seen and examined doing well comfortable tele hold cp improved Objective Current Medications: Current Medications Sig/Alysia Start time Last Medication Dose Route Stop Time Status Admin Acetaminophen 650 MG .STK-MED ONE 05/04 2348 DC PO 05/04 2349 Acetaminophen 650 MG .STK-MED ONE 05/04 1803 DC PO 05/04 1804 Acetaminophen 650 MG Q6P PRN 05/02 1315 AC 05/04 PO 2349 Heparin Sodium 25,000 UNIT Q24H 05/02 1130 DC 05/04 (Porcine) IV 1250 Sodium Chloride 500 ML Ibuprofen 600 MG ONCE ONE 05/04 1100 DC 05/04 PO 05/04 1101 1100 Magnesium Oxide 400 MG BID 05/05 1000 AC PO Metoprolol Tartrate 50 MG BID 05/05 1000 AC PO Metoprolol Tartrate 25 MG BID 05/04 1000 DC 05/04 PO 2150 Morphine Sulfate 2 MG Q4P PRN 05/02 1530 AC 05/03 IV 2145 Ondansetron HCl 4 MG Q4-6 PRN PRN 05/02 1545 AC 05/03 IV 2144 Pantoprazole Sodium 40 MG DAILY 05/02 1320 AC 05/04 IV 1023 Phosphate 250 MG PC AND AT BEDTIME 05/03 1300 AC 05/04 PO 2146 Polyethylene Glycol 17 GM DAILY PRN 05/05 0615 AC PO Senna/Docusate Sodium 1 TAB BID PRN 05/05 0615 AC PO Silver Sulfadiazine 1 LOURDES TID PRN 05/05 0845 AC TOP Sodium Chloride 1,000 ML Q20H 05/03 1445 DC 05/03 IV 1550 Vital Signs & I&O Last 24 Hrs of Vitals and I&O: Vital Signs Date Time Temp Pulse Resp B/P B/P Pulse O2 O2 Flow FiO2 Mean Ox Delivery Rate 05/05 0000 93 Room Air 05/04 2355 98.6 81 19 100/60 92 Room Air 05/04 2150 88 110/60 05/04 1600 99.3 84 20 118/64 93 Room Air 05/04 1600 92 Room Air 05/04 1113 95 Nasal 4.0L Cannula 05/04 1023 117 132/74 Intake & Output 05/05 1600 05/05 0800 05/05 0000 Intake Total 517 454 Output Total 1400 350 Balance -883 104 Intake, IV 157 214 Intake, Oral 360 240 Number 0 0 Bowel Movements Output, Urine 1400 350 Exam Other Physical Findings: gen awake and alert heent ncat cvs s1, s2 lungs diminished at bases abd soft bs+ ext without edema tenderness midchest Results Last 24 Hrs of Lab Results: Laboratory Tests 05/05/17 0600: Anion Gap 7, Estimated GFR > 60, Glucose 106 H, Calcium 8.7, Phosphorus 2.7, Magnesium 1.9, Total Bilirubin 1.1, AST 50, ALT 77 H, Albumin 3.1 L, APTT 75 H, CBC w Diff NO MAN DIFF REQ, RBC 4.13 L, MCV 93.6, MCH 30.9, RDW 13.6, MPV 9.4, Gran % 77.2 H, Lymphocytes % 14.0 L, Monocytes % 6.6, Eosinophils % 2.0, Basophils % 0.2, Absolute Granulocytes 5.0, Absolute Lymphocytes 0.9 L, Absolute Monocytes 0.4, Absolute Eosinophils 0.1, Absolute Basophils 0, PUBS MCHC 33.0 05/04/17 2210: APTT 95 H 05/04/17 1130: APTT 81 H Impression/Plan Impression/Plan Impression/Plan: Impression 76 year old man * s/p cardiac arrest, ventricular arrhythmia after cardioversion electively for a.fib * chest contusion with possible fractures of ribs/costochondritic pain * cardiogenic shock resolved - cardiomyopathy, likely underlying from cpr Plan Respiratory -reduce fio2 as tolerated -repeat cxr this morning -chest contustion post compressions -aggressive pain control -incentive spirometry q1 hour ID -no acute issues CVS -f/u cardiology recommendations -on heparin drip, previously on xarelto -per cardiology limited echo repeat early next week Heme -heparin drip monitoring Metabolic -replete electrolytes to goal -[facility] Alimentary -cardiac diet, with a bedside swallow Neuro -pain control DVT prophylaxis at all times Tele hold will sign off
--- NOTE | 2017-05-05 12:10 | ECHOCARDIOGRAM REPORT ---
CAROLYN WRIGHT Age: 76 : 1940 Gender: M Exam Date: 05/05/2017 09:44 Exam Location: [facility] Ht (in): 72 Wt (lb): 200 BSA: 2.16 BP: 120 / 80 Ordering Physician: HUMBLE FISHMAN MD Referring Physician: HUMBLE FISHMAN MD Technologist: Jaycob Dinero ANITA Room Number: [id number] Indications: Atrial fibrillation Rhythm: Technical Quality: FINDINGS Left Ventricle Normal LV chamber size and wall thickness. The estimated LVEF is 30%. There is global hypokinesis. There is severe apical hypokinesis/akinesis. Right Ventricle Grossly normal appearing right ventricular size wall thickness and function Right Atrium Normal appearing right atrium Left Atrium Mildly dilated left atrium Mitral Valve Mildly calcified mitral valvular annulus and leaflets. There is mild to moderate mitral regurgitation Aortic Valve Normal appearing trileaflet aortic valve Tricuspid Valve Normal appearing tricuspid valve. There is mild tricuspid regurgitation Pulmonic Valve Normal appearing pulmonic valve Pericardium Normal pericardium with no effusion Great Vessels Grossly normal appearing great vessels CONCLUSIONS Normal LV chamber size and wall thickness. The estimated LVEF is 30%. There is global hypokinesis. There is severe apical hypokinesis/akinesis. Mildly calcified mitral valvular annulus and leaflets. There is mild to moderate mitral regurgitation. There is mild tricuspid regurgitation. Yao Delgado M.D. (Electronically Signed) Final Date: 05 May 2017 12:10 MEASUREMENTS (Male / Female) Normal Values 2D ECHO LV Diastolic Diameter PLAX 5.3 cm 4.2 - 5.9 / 3.9 - 5.3 cm LV Systolic Diameter PLAX 4.4 cm 2.1 - 4.0 cm LV Fractional Shortening PLAX 17.0 % 25 - 46 % LV Ejection Fraction 2D Teich 35.2 % IVS Diastolic Thickness 1.4 cm LVPW Diastolic Thickness 1.3 cm LV Relative Wall Thickness 0.5 RV Internal Dim ED PLAX 3.3 cm 1.9 - 3.8 cm
[2017-05-05 16:00] VITALS: BP 142/84
[2017-05-05 18:03] VITALS: BP 130/64
--- NOTE | 2017-05-05 18:10 | Transfer of Care Summary ---
Hospital Course Course Hospital Course: This is a very pleasant 76-year-old male with a past medical history of hyperlipidemia and A. fib who presented for an elective cardioversion on 05/02 which was complicated by ventricular fibrillation episodes requiring activation of ACLS. After CPR and multiple attempts of defibrillation and amiodarone 150mg IV a pulsed rythm was restored. Pt was transiently intubated ad transferred to ICU. His BP was low and required placement of Right IJ central line with initiation of [place] (a quick bedside echo was remarkable for depreesed EF of about 20-30%) and Levophed pressors. Pressors were slowly tapered of the following day and IJ catheter was removed with no complications (05/04/2017) Pt converted back to rate controlled afib early in the morning on 05/04 . Heparin drip stoppped on 05/05 and Xarelto restarted. Significant Procedures: CAROLYN WRIGHT Age: 76 : 1940 Gender: M Exam Date: 05/05/2017 09:44 Exam Location: [facility] Ht (in): 72 Wt (lb): 200 BSA: 2.16 BP: 120 / 80 Ordering Physician: HUMBLE FISHMAN MD Referring Physician: HUMBLE FISHMAN MD Technologist: Jaycob Dinero RDCS Room Number: [id number] Indications: Atrial fibrillation Rhythm: Technical Quality: FINDINGS Left Ventricle Normal LV chamber size and wall thickness. The estimated LVEF is 30%. There is global hypokinesis. There is severe apical hypokinesis/akinesis. Right Ventricle Grossly normal appearing right ventricular size wall thickness and function Right Atrium Normal appearing right atrium Left Atrium Mildly dilated left atrium Mitral Valve Mildly calcified mitral valvular annulus and leaflets. There is mild to moderate mitral regurgitation Aortic Valve Normal appearing trileaflet aortic valve Tricuspid Valve Normal appearing tricuspid valve. There is mild tricuspid regurgitation Pulmonic Valve Normal appearing pulmonic valve Pericardium Normal pericardium with no effusion Great Vessels Grossly normal appearing great vessels CONCLUSIONS Normal LV chamber size and wall thickness. The estimated LVEF is 30%. There is global hypokinesis. There is severe apical hypokinesis/akinesis. Mildly calcified mitral valvular annulus and leaflets. There is mild to moderate mitral regurgitation. There is mild tricuspid regurgitation. Yao Delgado M.D. (Electronically Signed) Final Date: 05 May 2017 12:10 MEASUREMENTS (Male / Female) Normal Values 2D ECHO LV Diastolic Diameter PLAX 5.3 cm 4.2 - 5.9 / 3.9 - 5.3 cm LV Systolic Diameter PLAX 4.4 cm 2.1 - 4.0 cm LV Fractional Shortening PLAX 17.0 % 25 - 46 % LV Ejection Fraction 2D Teich 35.2 % IVS Diastolic Thickness 1.4 cm LVPW Diastolic Thickness 1.3 cm LV Relative Wall Thickness 0.5 RV Internal Dim ED PLAX 3.3 cm 1.9 - 3.8 cm DICTATED BY: YAO DELGADO MD Assessment/Plan: * Atrial fibrillation Converted back to A. fib yesterday early in the morning with controlled heart rate and some intermittent bursts of elevated heart rates in 120-140s. We'll continue with rate control by increasing metoprolol 25 twice a day to 50 twice a day. Ready on heparin anticoagulation, will stop and restart Xarelto 20 mg by mouth daily. Will await further recommendation from Dr. Livingston ( marketing producer) regarding antiarrhythmics. * Cardiomyopathy Thid likely secondary to tachycardia induced due to his atrial fibrillation.Limited echo done which was remarkablean estimated LVEF of 30%, global hypokinesis and severe apical hypokinesis/akinesis. Given his low EF and atrial fibrillation patient might require Life Vest and possible AICD placement. Patient is also a candidate TREMAYNE inhibitor based on his EF. * Electrical burn Patient has some erythema in his chest area consistent with electrical burn from defibrillation. Will use silver sulfadiazine applied topically. Patient has some erythema in his chest area consistent with electrical burn from defibrillation. Will use silver sulfadiazine applied topically.
--- NOTE | 2017-05-05 20:11 | NUR ---
PT HEART RATE ON MONITOR TACHY UP TO 150'S. INFOMRED ICU RESIDNET ( PT JUST GOT TO FLOOR). ALL OTHER VITALS STABLE. PER ICU TWISTER OPERATOR, LOPRESSOR DOSE HAS BEEN INCREASED. HR VRIES FROM 100S-140S/150S (UNSUSTAINED IN 150'S). PT OFFERS NO COMPLAINTS. TEXT PAGE ALSO SENT TO TWISTER OPERATOR IMELDA.
[2017-05-05] MEDS ORDERED: XARELTO20 M2 PO (21:35)
--- NOTE | 2017-05-05 21:51 | Cons- Cardiology ---
General Information and HPI Consulting Request Date of Consult: 05/05/17 Requested By: GABRIELLA SALDAÑA,Yao ORDONEZ Reason for Consult: I was asked to see this patient regarding rapidly conducted A. fib, cardiomyopathy, and a cardiac arrest occurring during direct current cardioversion. Source of Information: patient, old records Exam Limitations: no limitations History of Present Illness: This patient is a 76-year-old man who has very little in the way of past medical history. He has overall been extremely healthy very active walking at least 2 miles per day lifting weights going to the gym etc. He does have a known history of hyperlipidemia and had been started by Sesar Webster MD on a statin years ago. He never smoked and only drinks infrequently. 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 With this background he thinks more recently he may have had very mild episodes of elevated heart rate. These were not a bother to him in fact his exercise tolerance remained excellent. On 02/27/2017 he went to see Sesar Webster MD for a routine physical. He was found to be in atrial fibrillation with a fairly rapid ventricular response. He was referred to Dr. Cervantes's office and he was begun on Xarelto and beta blockers. He had an echocardiogram done on 03/05/2017 showing global hypokinesis with an EF of 40% there is mild to moderate mitral regurgitation his left atrium was enlarged at 4.3 cm. There was a suggestion of a patent foramen ovale. The ascending aorta was enlarged at 4.3 cm. A Holter monitor done on 03/07/2017 showed an elevated average heart rate during A. fib at 101 beats minute with a maximum to 185 bpm. There is no ventricular ectopy. It was presumed that he may have a tachycardia induced cardiomyopathy and thus it was recommended that he undergo cardioversion. He was thus brought to [facility] on 05/02/2017 a transesophageal echo showed moderate enlargement of the left atrium his EF was estimated at 35% there is mild to moderate mitral regurgitation there was a patent foramen ovale and this ascending aortic size was 4.2 cm. Parker He underwent a single benign shock with 200 J and this did not convert him to sinus rhythm. I do not have the EKG strips but according to Dr. Richards the second 200 J shock was unsynchronized the patient developed ventricular fibrillation. I do have subsequent tracings which show several shocks subsequently which were actually unsuccessful at achieving sinus rhythm. The patient remained in ventricular fibrillation. The 7th shock delivered by the defibrillator did actually briefly achieve sinus rhythm then there is a run of VT seen after this and I assume subsequently he was in sinus rhythm. He was admitted to the ICU. His first EKG did show some borderline QT prolongation but this gradually resolved. Unfortunately he did go back and A. fib with a rapidly conducted ventricular response. A repeat echo today shows an EF of 30% with global hypokinesis and significant apical hypo-to akinesis. I was thus asked to see him regarding refractory A. fib, cardiomyopathy, and cardiac arrest occurring during cardioversion which was fairly refractory to defibrillation. Allergies/Medications Allergies: Coded Allergies: No Known Allergies (05/02/17) Home Med List: Metoprolol Tartrate 25 MG TABLET 1 TAB PO BID HEART (Reported) Rivaroxaban (Xarelto) 20 MG TABLET 20 MG PO DAILY atrial fibrillation ( Reported) Current Medications: Current Medications Sig/Alysia Start time Last Medication Dose Route Stop Time Status Admin Acetaminophen 650 MG .STK-MED ONE 05/05 0954 DC PO 05/05 0955 Acetaminophen 650 MG .STK-MED ONE 05/04 2348 DC PO 05/04 2349 Acetaminophen 650 MG Q6P PRN 05/02 1315 AC 05/05 PO 2130 Heparin Sodium 25,000 UNIT Q24H 05/02 1130 DC 05/04 (Porcine) IV 1250 Sodium Chloride 500 ML Magnesium Oxide 400 MG BID 05/05 1000 AC 05/05 PO 2131 Metoprolol Tartrate 50 MG BID 05/05 1000 AC 05/05 PO 2130 Metoprolol Tartrate 25 MG BID 05/04 1000 DC 05/04 PO 2150 Morphine Sulfate 2 MG Q4P PRN 05/02 1530 AC 05/03 IV 2145 Ondansetron HCl 4 MG Q4-6 PRN PRN 05/02 1545 AC 05/03 IV 2144 Pantoprazole Sodium 40 MG DAILY 05/02 1320 AC 05/05 IV 1012 Phosphate 250 MG PC AND AT BEDTIME 05/03 1300 AC 05/05 PO 2131 Polyethylene Glycol 17 GM DAILY PRN 05/05 0615 AC 05/05 PO 1009 Rivaroxaban 20 MG 1700 05/06 1700 AC PO Rivaroxaban 20 MG DAILY 05/05 1000 DC 05/05 PO 1009 Senna/Docusate Sodium 1 TAB BID PRN 05/05 0615 AC 05/05 PO 1008 Silver Sulfadiazine 1 LOURDES TID PRN 05/05 0845 AC 05/05 TOP 1008 Review of Systems Review of Systems: On extensive review of systems reveals only some chest pain related to his recent cardiac arrest. All the systems are reviewed and are negative. 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 family history was reviewed and is remarkable for mother had CHF. A brother has diabetes. Psychosocial History Where Do You Live? Home Services at Home: None Smoking Status: Never Smoked ETOH Use: occasional use Illicit Drug Use: denies illicit drug use Exam & Diagnostic Data Vital Signs and I&O Vital Signs Date Time Temp Pulse Resp B/P B/P Pulse O2 O2 Flow FiO2 Mean Ox Delivery Rate 05/05 2130 112 142/84 05/05 1803 97.7 123 20 130/64 93 Room Air 05/05 1600 97.6 100 20 142/84 96 Room Air 05/05 0800 97.6 104 20 120/80 96 Room Air 05/05 0000 93 Room Air 05/04 2355 98.6 81 19 100/60 92 Room Air 05/04 2150 88 110/60 Intake & Output 05/05 1600 05/05 0800 05/05 0000 05/04 1600 05/04 0800 05/04 0000 Intake Total 1100 517 454 800 715 816 Output Total 600 1400 350 750 400 400 Balance 500 -883 104 50 315 416 Intake, IV 100 157 214 350 595 576 Intake, Oral 1000 360 240 450 120 240 Number 0 0 0 0 0 Bowel Movements Output, Urine 600 1400 350 750 400 400 Physical Exam: General: [] For vital signs, see above. Head: Normocephalic/atraumatic Eyes: No xanthelasma or scleral icterus Mouth: Moist mucous membranes without pallor or cyanosis Neck: No jugular venous distention, carotid bruits, thyromegaly Thorax/lungs: No chest deformity, lungs clear Cardiac: Irregular irregular, rapid rate low 100's Abdomen: No tenderness or masses Extremities: No cyanosis, clubbing, or edema Neruo: Grossly nonfocal Skin: No major rashes Psychiatric: Normal mood and affect Labs/Eran Results: Laboratory Tests 05/05 05/05 05/04 1700 0600 2210 Chemistry Sodium (137 - 145 mmol/L) 136 L Potassium (3.5 - 5.1 mmol/L) 4.1 Chloride (98 - 107 mmol/L) 105 Carbon Dioxide (22 - 30 mmol/L) 24 Anion Gap (5 - 16) 7 BUN (9 - 20 mg/dL) 11 Creatinine (0.7 - 1.2 mg/dL) 1.0 Estimated GFR (>60 ml/min) > 60 Glucose (65 - 99 mg/dL) 106 H Calcium (8.4 - 10.2 mg/dL) 8.7 Phosphorus (2.5 - 4.5 mg/dL) 2.7 Magnesium (1.6 - 2.3 mg/dL) 1.9 Total Bilirubin (0.2 - 1.3 mg/dL) 1.1 AST (17 - 59 U/L) 50 ALT (21 - 72 U/L) 77 H Albumin (3.5 - 5.0 g/dL) 3.1 L Coagulation APTT (25 - 37 SEC) Cancelled 75 H 95 H Hematology CBC w Diff NO MAN DIFF REQ WBC (4.8 - 10.8 /CUMM) 6.4 RBC (4.70 - 6.10 /CUMM) 4.13 L Hgb (14.0 - 18.0 G/DL) 12.8 L Hct (42 - 52 %) 38.7 L MCV (80.0 - 94.0 FL) 93.6 MCH (27.0 - 31.0 PG) 30.9 RDW (11.5 - 14.5 %) 13.6 Plt Count (130 - 400 /CUMM) 140 MPV (7.4 - 10.4 FL) 9.4 Gran % (42.2 - 75.2 %) 77.2 H Lymphocytes % (20.5 - 51.1 %) 14.0 L Monocytes % (1.7 - 9.3 %) 6.6 Eosinophils % (0 - 5 %) 2.0 Basophils % (0.0 - 2.0 %) 0.2 Absolute Granulocytes (1.4 - 6.5 /CUMM) 5.0 Absolute Lymphocytes (1.2 - 3.4 /CUMM) 0.9 L Absolute Monocytes (0.10 - 0.60 /CUMM) 0.4 Absolute Eosinophils (0.0 - 0.7 /CUMM) 0.1 Absolute Basophils (0.0 - 0.2 /CUMM) 0 PUBS MCHC (33.0 - 37.0 G/DL) 33.0 05/04 05/04 05/03 1130 0595 2328 Chemistry Sodium (137 - 145 mmol/L) 136 L Potassium (3.5 - 5.1 mmol/L) 4.3 Chloride (98 - 107 mmol/L) 108 H Carbon Dioxide (22 - 30 mmol/L) 25 Anion Gap (5 - 16) 3 L BUN (9 - 20 mg/dL) 14 Creatinine (0.7 - 1.2 mg/dL) 1.0 Estimated GFR (>60 ml/min) > 60 Glucose (65 - 99 mg/dL) 77 Calcium (8.4 - 10.2 mg/dL) 7.9 L Phosphorus (2.5 - 4.5 mg/dL) 2.4 L Magnesium (1.6 - 2.3 mg/dL) 2.1 Total Bilirubin (0.2 - 1.3 mg/dL) 0.8 AST (17 - 59 U/L) 59 ALT (21 - 72 U/L) 77 H Albumin (3.5 - 5.0 g/dL) 2.7 L Coagulation APTT (25 - 37 SEC) 81 H 87 H Hematology CBC w Diff NO MAN DIFF REQ WBC (4.8 - 10.8 /CUMM) 7.3 RBC (4.70 - 6.10 /CUMM) 3.63 L Hgb (14.0 - 18.0 G/DL) 11.3 L Hct (42 - 52 %) 34.0 L MCV (80.0 - 94.0 FL) 93.5 MCH (27.0 - 31.0 PG) 31.0 RDW (11.5 - 14.5 %) 13.6 Plt Count (130 - 400 /CUMM) 105 L MPV (7.4 - 10.4 FL) 10.4 Gran % (42.2 - 75.2 %) 81.2 H Monocytes % (1.7 - 9.3 %) 6.8 Eosinophils % (0 - 5 %) 1.3 Basophils % (0.0 - 2.0 %) 0.2 Absolute Granulocytes (1.4 - 6.5 /CUMM) 5.9 Absolute Lymphocytes (1.2 - 3.4 /CUMM) 0.8 L Absolute Monocytes (0.10 - 0.60 /CUMM) 0.5 PUBS MCHC (33.0 - 37.0 G/DL) 33.1 Diagnostic Data EKG Results AF with rapid ventricular response, diffuse STT abnormalities Assessment/Plan Assessment/Plan My assessment is that this is a most interesting case. The most likely scenario is that he has rapidly conducted A. fib resulting in a tachycardia induced cardiomyopathy. He had ventricular fibrillation as a result of a DC shock possibly on the T wave. What is unusual but this case is the fact that he required multiple shocks to get him out of ventricular fibrillation. This is a bit unusual esspecially in a man of normal size. Also it is a bit unusual for a high-voltage shock even on the T wave to produce ventricular fibrillation. This raises the possibility that he may in fact have an underlying cardiomyopathy that is arrhythmogenic and that the A. fib is secondary to this process as opposed to vice versa. One has to be suspicious of underlying coronary artery disease given his history of hyperlipidemia and is ST-T wave abnormalities noted. This could explain refractory ventricular arrhythmias. My thought was in his case to begin amiodarone and then aim for another cardioversion in a month or so down the line after he is loaded with amiodarone. If with sinus rhythm his EF improved markedly we would know that he has a tachycardia induced cardiomyopathy. However, quite understandably, he is very reluctant to consider another cardioversion after his cardiac arrest occurred. We will thus reserve amiodarone and another cardioversion for the future but I still do think this would be very reasonable. In the meantime I do think we need to be aggressive looking for other causes of cardiomyopathy and also underlying coronary disease. I have thus suggested that he undergo a cardiac catheterization as well as a cardiac MRI. I would note that his insurance does not cover any of the [facility] would be a perfect place for him to have these studies. I would note however that is very reluctant to even wait for a transfer and efficient ordering of the above-noted studies. He may wish to go home and then be admitted electively for the studies. I do think his risk of a ventricular fibrillation arrest at this point is low in the short-term. One could consider a LifeVest but I do not feel overly strongly in this regard. 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 He definitely needs very aggressive rate control as one of the options for him will be to leave him in chronically rate-controlled atrial fibrillation. I suspect he will probably need as much as 200 mg of metoprolol a day to achieve this goal. It would be reasonable to add an ARB, TREMAYNE inhibitor, or Entresto to his regimen. Thus this point the decision will be between a transfer to [facility] for An MRI versus discharge an elective evaluation. In the meantime aggressive rate control and optimal medical therapy will be paramount. It would not be surprising if simply with good rate control his A. fib his EF improved over time. One could then leave him in chronic rate-controlled persistent atrial fibrillation. This would be reasonable especially as he has essentially been asymptomatic. Thank you very much for allowing me to see this most interesting and pleasant patient. Problem List: 1. Ventricular fibrillation 2. Atrial fibrillation Copies To: GABRIELLA SALDAÑA,LAURA Waller; TONYA SALDAÑA,ASHLIE; STELLA SALDAÑA,YAO Consult Acknowledgment - Thank you for your consult request.
[2017-05-05 23:41] VITALS: BP 142/84
--- NOTE | 2017-05-06 06:52 | PN- Housestaff ---
DANIEL ARMENTA MD 05/06/17 0651: Subjective Follow-up For: Cardiac Arrest S/P RUSS/Cardioversion Atrial Fibrilation Tele-Events Since Last Visit: Atrial Fibrillation HR 90-100 Tachycardia 110-150 ~0600 Subjective: Patient seen and examined. He is seen standing up in his room pacing about wearing street clothing. He appears to be in no acute distress. He reports persistent pain in his chest but otherwise states that he feels fine. He denies any new complaints and is requesting to go home. He has many concerns in regards to his insurance coverage for this hospital stay and various outpatient follow ups. Otherwise he denies any headache, fever, chills, shortness of breath, nausea, vomiting, diarrhea. Review of Systems Constitutional: Reports: see HPI. Objective Last 24 Hrs of Vital Signs/I&O Vital Signs Date Time Temp Pulse Resp B/P B/P Pulse O2 O2 Flow FiO2 Mean Ox Delivery Rate 05/06 0800 99.4 83 18 122/70 92 Room Air 05/06 0000 Room Air 05/05 2341 98.3 101 20 142/84 93 Room Air 05/05 2252 100 124/64 05/05 2130 112 142/84 05/05 1803 97.7 123 20 130/64 93 Room Air Intake & Output 05/06 1600 05/06 0800 05/06 0000 Intake Total 400 460 600 Output Total 600 700 Balance -200 -240 600 Intake, Oral 400 460 600 Output, Urine 600 700 Patient 91 kg Weight Physical Exam General Appearance: Alert, Oriented X3, Cooperative, No Acute Distress Other Physical Findings: General- well developed, well nourished elderly man in no acute distress HEENT- NCAT, PERRL, EOMI, anicteric sclera Chest- S1, S2 w/o m/g/r; irregularly irregular Lung- CTA bilaterally Abdomen- Soft, nontender, nondistended Neuro- Awake and alert, CN II - XII grossly intact Ext- no cyanosis/clubbing/edema, pulses irregular Current Medications: Current Medications Sig/Alysia Start time Last Medication Dose Route Stop Time Status Admin Acetaminophen 650 MG .STK-MED ONE 05/05 2125 DC PO 05/05 2126 Acetaminophen 650 MG Q6P PRN 05/02 1315 AC 05/05 PO 2130 Magnesium Oxide 400 MG BID 05/05 1000 AC 05/06 PO 0938 Metoprolol Tartrate 75 MG BID 05/06 1000 AC 05/06 PO 0938 Metoprolol Tartrate 25 MG ONCE ONE 05/05 2245 DC 05/05 PO 05/05 2246 2252 Metoprolol Tartrate 50 MG BID 05/05 1000 DC 05/05 PO 2130 Morphine Sulfate 2 MG Q4P PRN 05/02 1530 AC 05/03 IV 2145 Ondansetron HCl 4 MG Q4-6 PRN PRN 05/02 1545 AC 05/03 IV 2144 Pantoprazole Sodium 40 MG DAILY 05/02 1320 AC 05/06 IV 0938 Phosphate 250 MG PC AND AT BEDTIME 05/03 1300 AC 05/06 PO 1211 Polyethylene Glycol 17 GM DAILY PRN 05/05 0615 AC 05/05 PO 1009 Rivaroxaban 20 MG 1700 05/06 1700 AC 05/06 PO 1604 Senna/Docusate Sodium 1 TAB BID PRN 05/05 0615 AC 05/05 PO 1008 Silver Sulfadiazine 1 LOURDES TID PRN 05/05 0845 05/05 TOP 1008 Last 24 Hrs of Lab/Eran Results Last 24 Hrs of Labs/Mics: Laboratory Tests 05/06/17 0720: Anion Gap 5, Estimated GFR > 60, Glucose 85, Calcium 8.9, Phosphorus 3.0, Magnesium 1.7, Total Bilirubin 1.2, AST 83 H, ALT 104 H, Albumin 3.1 L, CBC w Diff NO MAN DIFF REQ, RBC 4.17 L, MCV 92.9, MCH 31.1 H, RDW 13.4, MPV 9.7, Gran % 74.9, Lymphocytes % 14.7 L, Monocytes % 8.4, Eosinophils % 1.7, Basophils % 0.3, Absolute Granulocytes 4.5, Absolute Lymphocytes 0.9 L, Absolute Monocytes 0.5, Absolute Eosinophils 0.1, Absolute Basophils 0, PUBS MCHC 33.4 Assessment/Plan Assessment: This is a very pleasant 76-year-old male with a past medical history of hyperlipidemia and A. fib who presented for an elective cardioversion which was complicated with ventricular fibrillation episodes requiring activation of ACLS. #History of Atrial Fibrillation Patient with history of atrial fibrillation whom underwent outpatient RUSS/ cardioversion and subsequently developed cardiac arrest requring ACLS. Patient was initially transferred to the ICU after ROSC was acheived and briefly intubated. Patient was transfered to the telemetry floor for further evaluation after he was medically stabilized. Senior Program Analyst Dr. Berrios evaluated the patient and recommended that patient be transfered for further cardiac evaluation to include a cardiac catheterization and MRI; which patient declined. -Telemetry -Xarelto 20mg PO Daily -Metoprolol 75mg PO BID -Pantoprazole 40mg PO Daily -Zofran 4mg IV Q4-6H PRN Nausea -MagOx 400mg PO BID -Cardiology following #Electrical burn Patient has some erythema in his chest area consistent with electrical burn from defibrillation. Will use silver sulfadiazine applied topically. Pain plan-Acetaminophen Bowel Regimen-Senna/Miralax Diet-Heart Healthy Diet DVT PPx-Ambulation/Xarelto Code Status-FULL CODE Problem List: 1. Atrial fibrillation 2. Ventricular fibrillation Pain Ratin Pain Location: See assessment Pain Goal: Pain 4 or less Pain Plan: See assessment Tomorrow's Labs & Rationales: None
[2017-05-06 08:00] VITALS: BP 122/70
[2017-05-06 08:14] LABS: ABSOLUTE BASOPHIL COUNT 0 /CUMM (0.0-0.2); ABSOLUTE EOSINOPHIL COUNT 0.1 /CUMM (0.0-0.7); ABSOLUTE GRANULOCYTE CT 4.5 /CUMM (1.4-6.5); ABSOLUTE LYMPH COUNT 0.9 /CUMM (1.2-3.4); ABSOLUTE MONOCYTE COUNT 0.5 /CUMM (0.10-0.60); BASOPHIL % 0.3 % (0.0-2.0); EOSINOPHIL % 1.7 % (0-5); GRANULOCYTE % 74.9 % (42.2-75.2); HEMATOCRIT 38.8 % (42-52); MEAN CORPUSCULAR HGB 31.1 PG (27.0-31.0); MEAN CORPUSCULAR HGB CONC 33.4 G/DL (33.0-37.0); MEAN CORPUSCULAR VOLUME 92.9 FL (80.0-94.0); MEAN PLATELET VOLUME 9.7 FL (7.4-10.4); PLATELET COUNT 160 /CUMM (130-400); RBC DISTRIBUTION WIDTH 13.4 % (11.5-14.5); RED BLOOD CELL CT 4.17 /CUMM (4.70-6.10)
--- NOTE | 2017-05-06 09:40 | PN- Cardiology ---
Subjective Subjective: Patient still complains of chest discomfort post defibrillation. He denies shortness of breath, dizziness, palpitations or syncope. Dr. Berrios's consult appreciated Review of Systems: Eyes no blurred or double vision Ears no deafness or ringing Nose and throat no recurrent sinusitis Lungs per history of present illness Heart per history of present illness Abdomen no nausea vomiting Musculoskeletal occasional muscle and joint pains Psych no anxiety or depression Neuro without recurrent headache or seizures Endocrine no heat or cold intolerance Objective Vital Signs and I&Os Vital Signs Date Time Temp Pulse Resp B/P B/P Pulse O2 O2 Flow FiO2 Mean Ox Delivery Rate 05/06 0800 99.4 83 18 122/70 92 Room Air 05/06 0000 Room Air 05/05 2341 98.3 101 20 142/84 93 Room Air 05/05 2252 100 124/64 05/05 2130 112 142/84 05/05 1803 97.7 123 20 130/64 93 Room Air 05/05 1600 97.6 100 20 142/84 96 Room Air Intake & Output 05/06 1600 05/06 0800 05/06 0000 05/05 1600 05/05 0800 05/05 0000 Intake Total 332 201 8374 517 454 Output Total 481 240 9802 350 Balance -240 600 500 -883 104 Intake, IV 100 157 214 Intake, Oral 180 481 3509 360 240 Number 0 0 0 Bowel Movements Output, Urine 045 501 8452 350 Physical Exam: Patient is a well-developed well-nourished male appearing in no acute distress HEENT is unremarkable Neck is supple there is no JVD Lungs are clear Heart irregular rhythm S1 and S2 are normal no murmurs gallops or rubs Abdomen bowel sounds positive Extremities without edema Current Medications: Current Medications Sig/Alysia Start time Last Medication Dose Route Stop Time Status Admin Acetaminophen 650 MG .STK-MED ONE 05/05 2125 DC PO 05/05 2126 Acetaminophen 650 MG .STK-MED ONE 05/05 0954 DC PO 05/05 0955 Acetaminophen 650 MG Q6P PRN 05/02 1315 AC 05/05 PO 213 Magnesium Oxide 400 MG BID 05/05 1000 AC 05/05 PO 213 Metoprolol Tartrate 75 MG BID 05/06 1000 AC PO Metoprolol Tartrate 25 MG ONCE ONE 05/05 2245 DC 05/05 PO 05/05 224 2252 Metoprolol Tartrate 50 MG BID 05/05 1000 DC 05/05 PO 2130 Morphine Sulfate 2 MG Q4P PRN 05/02 1530 05/03 IV 2145 Ondansetron HCl 4 MG Q4-6 PRN PRN 05/02 1545 05/03 IV 2144 Pantoprazole Sodium 40 MG DAILY 05/02 1320 05/05 IV 1012 Phosphate 250 MG PC AND AT BEDTIME 05/03 1300 AC 05/05 PO 2131 Polyethylene Glycol 17 GM DAILY PRN 05/05 0615 AC 05/05 PO 1009 Rivaroxaban 20 MG 1700 05/06 1700 AC PO Rivaroxaban 20 MG DAILY 05/05 1000 DC 05/05 PO 1009 Senna/Docusate Sodium 1 TAB BID PRN 05/05 0615 05/05 PO 1008 Silver Sulfadiazine 1 LOURDES TID PRN 05/05 0845 05/05 TOP 1008 Results Last 48 Hrs of Labs/Mics: Laboratory Tests 05/06/17 0720: Anion Gap 5, Estimated GFR > 60, Glucose 85, Calcium 8.9, Phosphorus 3.0, Magnesium 1.7, Total Bilirubin 1.2, AST 83 H, ALT 104 H, Albumin 3.1 L, CBC w Diff NO MAN DIFF REQ, RBC 4.17 L, MCV 92.9, MCH 31.1 H, RDW 13.4, MPV 9.7, Gran % 74.9, Lymphocytes % 14.7 L, Monocytes % 8.4, Eosinophils % 1.7, Basophils % 0.3, Absolute Granulocytes 4.5, Absolute Lymphocytes 0.9 L, Absolute Monocytes 0.5, Absolute Eosinophils 0.1, Absolute Basophils 0, PUBS MCHC 33.4 05/05/17 1700: APTT Cancelled 05/05/17 0600: Anion Gap 7, Estimated GFR > 60, Glucose 106 H, Calcium 8.7, Phosphorus 2.7, Magnesium 1.9, Total Bilirubin 1.1, AST 50, ALT 77 H, Albumin 3.1 L, APTT 75 H, CBC w Diff NO MAN DIFF REQ, RBC 4.13 L, MCV 93.6, MCH 30.9, RDW 13.6, MPV 9.4, Gran % 77.2 H, Lymphocytes % 14.0 L, Monocytes % 6.6, Eosinophils % 2.0, Basophils % 0.2, Absolute Granulocytes 5.0, Absolute Lymphocytes 0.9 L, Absolute Monocytes 0.4, Absolute Eosinophils 0.1, Absolute Basophils 0, PUBS MCHC 33.0 05/04/17 2210: APTT 95 H 05/04/17 1130: APTT 81 H Telemetry personally reviewed atrial fibrillation with rapid ventricular response Assessment/Plan Assessment/Plan The patient is a 76-year-old gentleman with a past medical history of hyperlipidemia as well as atrial fibrillation. He presented for an elective cardioversion, which was complicated by ventricular fibrillation during the same. ACLS was initiated, and the patient was recovered. Ventricular fibrillation: Following a second cardioversion attempt using 200 J. The fibrillation was likely the result of the cardioversion; however, a postevent EKG demonstrated normal prolonged QT. Subsequent EKGs did not demonstrate this. The prolonged QT is likely secondary to his arrest; Cardiomyopathy: The patient has a cardiomyopathy with an LVEF of 35-40%. 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 We have increased his dose of metoprolol for improved rate control. Atrial fibrillation: Anticoagulation was switched to Xarelto (patient has previously been on the same ). Recommendations 1. Agree with increasing metoprolol for improved rate control. He will be assessed later today if his weight has improved we will consider discharge home. 2. I had a long discussion with the patient regarding Dr. Berrios's recommendations. He understands the risk of sudden cardiac . He does not want a Life Vest. He understands that at some point he will require a cardiac catheterization to rule out ischemia as an etiology to his ventricular fibrillation but is unwilling to be transferred at this time. He is concerned about his insurance and the cost of this current hospitalization. He also understands that Dr. Berrios has recommended an MRI which he is willing to consider also as an outpatient. She also does not want to consider amiodarone with repeat attempts at cardioversion for obvious reasons. 3. Monitor blood pressure closely and if tolerates consider adding an TREMAYNE/ARB as an outpatient Continue telemetry? Yes
[2017-05-06 17:26] VITALS: BP 130/78
[2017-05-06 23:49] VITALS: BP 130/80
--- NOTE | 2017-05-07 06:57 | NUR ---
HR INCREASED TO 150S AY 0645 WHEN PT BEGAN AMBULATING. MD PERALTA AWARE. STATED TO GIVE LOPRESSOR EARLY IF HR CONTINUES TO BE HIGH. HR BACK DOWN TO 90-110S. PT ASYMPTOMATIC. WILL CONTINUE TO MONITOR.
--- NOTE | 2017-05-07 07:07 | Patient Discharge Instructions ---
Discharge Instructions General Discharge Information Special Instructions: Follow up with your nuclear operator after discharge. Take Metoprolol as directed at its new dose. Start taking Lisinopril as directed. Acute Coronary Syndrome Inclusion Criteria At DC or during hospital stay patient has or had the following: ACS DIAGNOSIS No Discharge Core Measures Meds if any: Prescribed or Continued at Discharge Meds if any: NOT Prescribed or Continued at Discharge Congestive Heart Failure Inclusion Criteria At DC or during hospital stay patient has or had the following: CHF DIAGNOSIS No Discharge Core Measures Meds if any: Prescribed or Continued at Discharge Meds if any: NOT Prescribed or Continued at Discharge Cerebrovascular accident Inclusion Criteria At DC or during hospital stay patient has or had the following: CVA/TIA Diagnosis No Discharge Core Measures Meds if any: Prescribed or Continued at Discharge Meds if any: NOT Prescribed or Continued at Discharge Venous thromboembolism Inclusion Criteria VTE Diagnosis No VTE Type NONE VTE Confirmed by (Test) NONE Discharge Core Measures - Per Current guidelines, there needs to be overlap - treatment for the first 5 days of Warfarin therapy. - If discharged on Warfarin prior to 5 days of - overlap therapy, the patient will need to be - assessed for post discharge needs including - *Post discharge parental anticoagulation - *Warfarin and/or parental anticoagulation education - *Follow up date to check INR post discharge At least 5 days overlap therapy as Inpatient No Meds if any: Prescribed or Continued at Discharge Note: Overlap Therapy is Warfarin and Anticoagulant Meds if any: NOT Prescribed or Continued at Discharge
--- NOTE | 2017-05-07 07:37 | PN- Housestaff ---
KATHI SALDAÑA,DANIEL 05/07/17 0737: Subjective Follow-up For: Cardiac Arrest S/P RUSS/Cardioversion Atrial Fibrilation Tele-Events Since Last Visit: Atrial Fibrillatio HR 84-102 occasionnally tachycardic with ambulation up to 140's/150's Subjective: Patient seen and examined. He is seen sitting in his chair at bedside wearing street clothes resting comfortably. He appears to be in no acute distress. He reports persistent mild chest discomfort that he attributes to CPR/ Defibrillation and is unconcerned about it. He otherwise feels fine and is requesting to be discharged to home. Additionally he denies any fever, chills, palpitations, shortness of breath, nausea. Review of Systems Constitutional: Reports: see HPI. Objective Last 24 Hrs of Vital Signs/I&O Vital Signs Date Time Temp Pulse Resp B/P B/P Pulse O2 O2 Flow FiO2 Mean Ox Delivery Rate 05/07 0812 97.7 84 18 124/70 92 Room Air 05/06 2349 97.9 87 16 130/80 96 Room Air 05/06 1726 98.7 99 16 130/78 96 Intake & Output 05/07 1600 05/07 0800 05/07 0000 Intake Total 120 120 Output Total Balance 120 120 Intake, Oral 120 120 Physical Exam General Appearance: Alert, Oriented X3, Cooperative, No Acute Distress Other Physical Findings: General- well developed, well nourished elderly man in no acute distress HEENT- NCAT, PERRL, EOMI, anicteric sclera Chest- S1, S2 w/o m/g/r; irregularly irregular Lung- CTA bilaterally Abdomen- Soft, nontender, nondistended Neuro- Awake and alert, CN II - XII grossly intact Ext- no cyanosis/clubbing/edema, pulses irregular Current Medications: Current Medications Sig/Alysia Start time Last Medication Dose Route Stop Time Status Admin Acetaminophen 650 MG Q6P PRN 05/02 1315 AC 05/05 PO 2130 Loratadine 10 MG DAILY 05/07 1000 AC PO Magnesium Oxide 400 MG BID 05/05 1000 AC 05/07 PO 0946 Metoprolol Tartrate 100 MG BID 05/07 2200 AC PO Metoprolol Tartrate 75 MG BID 05/06 1000 DC 05/07 PO 0946 Morphine Sulfate 2 MG Q4P PRN 06/16 1530 AC 05/03 IV 2145 Ondansetron HCl 4 MG Q4-6 PRN PRN 05/02 1545 AC 05/03 IV 2144 Pantoprazole Sodium 40 MG DAILY 05/02 1320 DC 05/07 IV 0947 Phosphate 250 MG PC AND AT BEDTIME 05/03 1300 AC 05/07 PO 0946 Polyethylene Glycol 17 GM DAILY PRN 05/05 0615 AC 05/05 PO 1009 Rivaroxaban 20 MG 1700 05/06 1700 AC 05/06 PO 1604 Senna/Docusate Sodium 1 TAB BID PRN 05/05 0615 AC 05/05 PO 1008 Silver Sulfadiazine 1 LOURDES TID PRN 05/05 0845 AC 05/05 TOP 1008 Assessment/Plan Assessment: This is a very pleasant 76-year-old male with a past medical history of hyperlipidemia and A. fib who presented for an elective cardioversion which was complicated with ventricular fibrillation episodes requiring activation of ACLS. #History of Atrial Fibrillation Patient with history of atrial fibrillation whom underwent outpatient RUSS/ cardioversion and subsequently developed cardiac arrest requring ACLS. Patient was initially transferred to the ICU after ROSC was acheived and briefly intubated. Patient was transfered to the telemetry floor for further evaluation after he was medically stabilized. Nanotechnician Dr. Berrios evaluated the patient and recommended that patient be transfered for further cardiac evaluation to include a cardiac catheterization and MRI; which patient declined. Metoprolol was increased to 100mg by mouth twice a day and Lisinopril started. Patient is was dicharged to home with instruction to follow up with his primary supervisor metal hanging and Dr. Berriso for further evaluation. -Telemetry -Xarelto 20mg PO Daily -Metoprolol 75mg PO BID -Pantoprazole 40mg PO Daily -Zofran 4mg IV Q4-6H PRN Nausea -MagOx 400mg PO BID -Cardiology following #Electrical burn Patient has some erythema in his chest area consistent with electrical burn from defibrillation. Will use silver sulfadiazine applied topically. Pain plan-Acetaminophen Bowel Regimen-Senna/Miralax Diet-Heart Healthy Diet DVT PPx-Ambulation/Xarelto Code Status-FULL CODE Problem List: 1. Atrial fibrillation 2. Ventricular fibrillation Pain Ratin Pain Location: Chest Pain Goal: Pain 4 or less Pain Plan: See assessment Tomorrow's Labs & Rationales: None
[2017-05-07 08:12] VITALS: BP 124/70
[2017-05-07] MEDS ORDERED: LISINOPRIL5 M1 PO ×2 (10:25→10:49)
[2017-05-07] MEDS ORDERED: LOPRESSOR100 M1 PO ×2 (10:25→10:49)
[2017-05-07] MEDS ORDERED: ATORVASTATIN CA10 M1 PO (10:34)
--- NOTE | 2017-05-07 11:08 | PN- Cardiology ---
Subjective Subjective: The patient is awake, alert The events of the last 24 hours as well as telemetry were reviewed. Telemetry demonstrated atrial fibrillation only Review of Systems: The review of systems is negative for chest pains, palpitations nor lightheadedness. The remainder of the 14 point review of systems is noncontributory with the exception of above. Objective Vital Signs and I&Os Vital Signs Date Time Temp Pulse Resp B/P B/P Pulse O2 O2 Flow FiO2 Mean Ox Delivery Rate 05/07 0812 97.7 84 18 124/70 92 Room Air 05/06 2349 97.9 87 16 130/80 96 Room Air 05/06 1726 98.7 99 16 130/78 96 Intake & Output 05/07 1600 05/07 0800 05/07 0000 05/06 1600 05/06 0800 05/06 0000 Intake Total 120 120 400 460 600 Output Total 600 700 Balance 120 120 -200 -240 600 Intake, Oral 120 120 400 460 600 Output, Urine 600 700 Patient 201 lb Weight Physical Exam: General: Nontoxic, no apparent distress. HEENT: Sclera and conjunctiva within normal limits, without xanthelasmas. Neck: Carotids 2+ without bruits. Respiratory: Clear to auscultation, air movement is good, without accessory respiratory muscle use. Heart: Irregularly irregular rate and rhythm, without murmurs, without JVD. Abdomen: Soft, nontender, no masses, normoactive bowel sounds. Extremities: Without clubbing, cyanosis, without edema. Neuro: Nonfocal exam, strength, 5 out of 5 Skin: Within normal limits without lesions. Psych: Mood and affect: Normal Current Medications: Current Medications Sig/Alysia Start time Last Medication Dose Route Stop Time Status Admin Acetaminophen 650 MG Q6P PRN 05/02 1315 AC 05/05 PO 2130 Loratadine 10 MG DAILY 05/07 1000 AC PO Magnesium Oxide 400 MG BID 05/05 1000 AC 05/07 PO 0946 Metoprolol Tartrate 100 MG BID 05/07 2200 AC PO Metoprolol Tartrate 75 MG BID 05/06 1000 DC 05/07 PO 0946 Morphine Sulfate 2 MG Q4P PRN 05/02 1530 AC 05/03 IV 2145 Ondansetron HCl 4 MG Q4-6 PRN PRN 05/02 1545 AC 05/03 IV 2144 Pantoprazole Sodium 40 MG DAILY 05/02 1320 DC 05/07 IV 0947 Phosphate 250 MG PC AND AT BEDTIME 05/03 1300 AC 05/07 PO 0946 Polyethylene Glycol 17 GM DAILY PRN 05/05 0615 AC 05/05 PO 1009 Rivaroxaban 20 MG 1700 05/06 1700 AC 05/06 PO 1604 Senna/Docusate Sodium 1 TAB BID PRN 05/05 0615 AC 05/05 PO 1008 Silver Sulfadiazine 1 LOURDES TID PRN 05/05 0845 AC 05/05 TOP 1008 Results Last 48 Hrs of Labs/Mics: Laboratory Tests 05/06/17 0720: Anion Gap 5, Estimated GFR > 60, Glucose 85, Calcium 8.9, Phosphorus 3.0, Magnesium 1.7, Total Bilirubin 1.2, AST 83 H, ALT 104 H, Albumin 3.1 L, CBC w Diff NO MAN DIFF REQ, RBC 4.17 L, MCV 92.9, MCH 31.1 H, RDW 13.4, MPV 9.7, Gran % 74.9, Lymphocytes % 14.7 L, Monocytes % 8.4, Eosinophils % 1.7, Basophils % 0.3, Absolute Granulocytes 4.5, Absolute Lymphocytes 0.9 L, Absolute Monocytes 0.5, Absolute Eosinophils 0.1, Absolute Basophils 0, PUBS MCHC 33.4 05/05/17 1700: APTT Cancelled Assessment/Plan Assessment/Plan The patient is a 76-year-old gentleman with a past medical history of hyperlipidemia as well as atrial fibrillation. He presented for an elective cardioversion, which was complicated by ventricular fibrillation during the same. ACLS was initiated, and the patient was recovered. Ventricular fibrillation: Following a second cardioversion attempt using 200 J. The fibrillation was likely the result of the cardioversion; however, a postevent EKG demonstrated normal prolonged QT. Subsequent EKGs did not demonstrate this. The prolonged QT is likely secondary to his arrest. Electrophysiology input is appreciated, and the patient's metoprolol dose has been increased. He does not wish further inpatient studies and we will therefore discharge him to home with regimen for outpatient follow-up. Cardiomyopathy: The patient has a cardiomyopathy with an LVEF of 35-40%. 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 We have increased his dose of metoprolol for improved rate control. Further medication titration, including the addition of an TREMAYNE inhibitor/insulin receptor maxwell will be made following evaluation of his blood pressure. Further outpatient testing including possible cardiac catheterization will be undertaken Atrial fibrillation: Anticoagulation will be switched to Xarelto (patient has previously been on the same). We will target for rate control at this time and further evaluation will be made by electrophysiology. Continue telemetry? No
--- NOTE | 2017-05-07 13:22 | Discharge Summary ---
Visit Information Visit Dates Admission Date: 05/02/17 Discharge Date: 05/07/17 Hospital Course Course Attending Physician: LAURA QUIROZ MD Primary Care Physician: ASHLIE CASTANEDA MD Consulting Request: 1 Consulting Specialty: Cardiology Consulting Request: 2 Consulting Specialty: Critical Care Hospital Course: 76-year-old male with a past medical history of hyperlipidemia and A. fib who presented for an elective cardioversion which was complicated with ventricular fibrillation episodes requiring activation of ACLS. #History of Atrial Fibrillation Patient with history of atrial fibrillation whom underwent outpatient RUSS/ cardioversion and subsequently developed cardiac arrest requring ACLS. Patient was initially transferred to the ICU after ROSC was acheived and briefly intubated. Patient was transfered to the telemetry floor for further evaluation after he was medically stabilized. Junior Database Administrator Dr. Smith evaluated the patient and recommended that patient be transfered for further cardiac evaluation to include a cardiac catheterization and MRI; which patient declined. Metoprolol was increased to 100mg by mouth twice a day and Lisinopril started. Patient is was dicharged to home with instruction to follow up with his primary lead teller and Dr. Smith for further evaluation. -Telemetry -Xarelto 20mg PO Daily -Metoprolol 75mg PO BID -Pantoprazole 40mg PO Daily -Zofran 4mg IV Q4-6H PRN Nausea -MagOx 400mg PO BID -Cardiology following #Electrical burn Patient has some erythema in his chest area consistent with electrical burn from defibrillation. Will use silver sulfadiazine applied topically. Complications: Cardiac Arrest Allergies: Coded Allergies: No Known Allergies (05/02/17) Significant Procedures: SERVICE DATE: 05/02/17- EXAM TYPE: RAD - XRY-PORTABLE CHEST XRAY IMPRESSION: Right internal jugular central venous catheter terminating over the superior SVC. No pneumothorax. SERVICE DATE: 05/02/17- EXAM TYPE: CARD - TRANSESOPHAGEAL ECHO CONCLUSIONS Left ventricular cavity size at the upper limits of normal. Normal left ventricular wall thickness. Moderately reduced global left ventricular systolic function. Left ventricular ejection fraction is estimated at 35 %. Normal right ventricular size and function. Mild right atrial dilatation. Moderate left atrial dilatation. No thrombus detected in the left atrial appendage. Patent foramen ovale. [id number] mitral regurgitation. Mildly dilated proximal ascending aorta (4.2 cm). Following the RUSS, cardioversion was attempted using 200 joules of synchronized energy x2. Following the 2nd delivery the patient developed VT/VF and ACLS protocol was immediately initiated with eventual return of spontaneous circulation. The patient was transferred to the ICU for additional treatment/monitoring. SERVICE DATE: 05/02/17 EXAM TYPE: RAD - XRY-PORTABLE CHEST XRAY IMPRESSION: Chest x-ray is limited. Lateral lower hemithorax is not included on the film. The lungs are grossly clear. There is no pulmonary edema, pneumothorax or significant pleural effusion SERVICE DATE: 05/03/17 EXAM TYPE: RAD - XRY-PORTABLE CHEST XRAY IMPRESSION: 1. Stable mildly enlarged cardiac silhouette. 2. Clear lungs and pleural spaces. SERVICE DATE: 05/05/17- EXAM TYPE: CARD - [id number] OR LIMITED CONCLUSIONS Normal LV chamber size and wall thickness. The estimated LVEF is 30%. There is global hypokinesis. There is severe apical hypokinesis/akinesis. Mildly calcified mitral valvular annulus and leaflets. There is mild to moderate mitral regurgitation. There is mild tricuspid regurgitation. SERVICE DATE: 05/05/17 EXAM TYPE: RAD - XRY-PORTABLE CHEST XRAY IMPRESSION: No pneumothorax. Streaky bibasilar opacities favor atelectasis, although pneumonia not excluded. Disposition Summary Disposition Principal Diagnosis: Cardiac Arrest S/P RUSS/Cardioversion Additional Diagnosis: Atrial Fibrillation Discharge Disposition: home or self care Discharge Instructions General Discharge Information Code Status: Full Code Patient's Diet: Heart Healthy Diet Patient's Activity: Return to full activity as tolerated Follow-Up Instructions/Appts: Follow up with your lead teller after discharge. Take Metoprolol as directed at its new dose. Start taking Lisinopril as directed. Medications at Discharge Discharge Medications: Stop taking the following medications: Metoprolol Tartrate (Metoprolol Tartrate) 25 MG TABLET ORAL TWICE DAILY Continue taking these medications: Rivaroxaban (Xarelto) 20 MG TABLET 20 Milligram ORAL DAILY Comments: Last Taken: 05/06/17 Time: 4:00 PM Atorvastatin Calcium (Atorvastatin Calcium) 10 MG TABLET 1 Tablet ORAL Every other day Comments: NOT TAKEN IN HOSPITAL Start taking the following new medications: Lisinopril (Lisinopril) 5 MG TABLET 1 Tablet ORAL DAILY Qty = 30 No Refills Instructions: . Comments: NOT TAKEN IN HOSPITAL Metoprolol Tartrate (Lopressor) 100 MG TABLET 1 Tablet ORAL TWICE DAILY Qty = 60 No Refills Instructions: . Comments: Last Taken: 05/07/17 Time: 10:00 AM Copies To: HEDY SALDAÑA,DIAMOND; TONYA SALDAÑA,ASHLIE; ELSA SMITH MD
== END 2017-05-07 12:25 | DRG 919 ==
LOC: IIU 08:12 → CRI 10:50 → 1NO 05-05 17:52 → ENPENDDIS 05-07 10:32 → 1NO 05-07 12:25
PROVIDERS: Internal Medicine; Internal Medicine Hematology & Oncology; Student in an Organized Health Care Education/Training Program; ADMIT Internal Medicine Critical Care Medicine
PROC: 0BH17EZ Insertion of Endotracheal Airway into Trachea, Via Natural or Artificial Opening (ICD-10-PCS; principal; 2017-05-02)
PROC: 5A12012 Performance of Cardiac Output, Single, Manual (ICD-10-PCS; principal; 2017-05-02)
PROC: 5A1935Z Respiratory Ventilation, Less than 24 Consecutive Hours (ICD-10-PCS; principal; 2017-05-02)
PROC: B246ZZ4 Ultrasonography of Right and Left Heart, Transesophageal (ICD-10-PCS; 2017-05-02)
DX: T81.11XA Postprocedural cardiogenic shock, initial encounter (principal); I49.01 Ventricular fibrillation; I48.91 Unspecified atrial fibrillation; I97.710 Intraoperative cardiac arrest during cardiac surgery; I97.89 Other postprocedural complications and disorders of the circulatory system, not elsewhere classified; Y84.8 Other medical procedures as the cause of abnormal reaction of the patient, or of later complication, without mention of misadventure at the time of the procedure; Y71.8 Miscellaneous cardiovascular devices associated with adverse incidents, not elsewhere classified; Y92.538 Other ambulatory health services establishments as the place of occurrence of the external cause; Z79.01 Long term (current) use of anticoagulants
CPT/HCPCS: 1NP; CCU; 36415; 82436; 93005; 93010; 93308; 93321; 93325; 94799; C1769; J1250; J1265; J1644; J2270; J2405; J3490; J7060